=== PATIENT | female | born 1955 | race Caucasian/White ===

== ENCOUNTER → 2017-02-03 | Outpatient (CLI) | payer BC ==
[2017-02-03 12:24] LABS: BASO % 0.4 %; BASO ABS # 0.02 K/uL (0-0.2); COMPLETE YES; EOS % 1.8 %; IG% 0.2 %; LYMPH % 33.5 %; LYMPH ABS # 1.72 K/uL (1.2-3.4); MEAN CELL VOLUME 89.9 fL (80-100); MEAN CORPUSCULAR HEMOGLOBIN 31.6 pg (25-34); MEAN CORPUSCULAR HGB CONC 35.1 g/dl (32-36); MEAN PLATELET VOLUME 9.9 fL (7.4-10.4); MONO % 8.8 %; NEUT % 55.3 %; PLATELET COUNT 270 K/uL (130-400); RED BLOOD COUNT 4.34 M/uL (4.2-5.4); WHITE BLOOD COUNT 5.13 K/uL (4.8-10.8)
[2017-02-03 12:28] LABS: URINE APPEARANCE CLEAR (CLEAR); URINE BILIRUBIN NEG (NEG); URINE COLOR YELLOW; URINE EPITHELIAL CELL AUTO 20-30 /lpf (0-5); URINE NITRITE NEG (NEG); URINE SPECIFIC GRAVITY 1.003 (1.000-1.030); UROBILINOGEN NEG (NEG)
[2017-02-03 12:37] LABS: ALT/SGPT 28 U/L (12-78); AST/SGOT 15 U/L (15-37); BLOOD UREA NITROGEN 11 mg/dl (7-18); BUN/CREATININE RATIO 15.7 (10-20); CALCIUM 8.9 mg/dl (8.5-10.1); CARBON DIOXIDE 29 mmol/L (21-32); CHLORIDE 106 mmol/L (98-107); CHOLESTEROL 226 mg/dl (0-200); CREATININE 0.72 mg/dl (0.60-1.20); GLUCOSE 95 mg/dl (70-99); MANUAL MICROSCOPIC REQUIRED? NO; POTASSIUM 3.7 mmol/L (3.5-5.1); REVIEW REQ? NO; SODIUM 142 mmol/L (136-145)
[2017-02-03 12:40] LABS: ALB/GLOB RATIO 1.1 (0.9-2); ALKALINE PHOSPHATASE 98 U/L (45-117); CHOLESTEROL/HDL RATIO 3.9; HDL CHOLESTEROL 58 mg/dl; LDL CHOLESTEROL CALCULATED 136 mg/dl; TRIGLYCERIDES 160 mg/dl (0-150); VERY LOW DENSITY LIPOPROT CALC 32 mg/dl
== END | disposition home or self-care (01) ==
LOC: C.LABBFT 08:24
PROVIDERS: ATTEND Nurse Practitioner
DX: E78.00 Pure hypercholesterolemia, unspecified (principal); R03.0 Elevated blood-pressure reading, without diagnosis of hypertension

== ENCOUNTER → 2017-03-06 | Outpatient (CLI) | payer BC ==
--- NOTE | 2017-03-09 12:46 | MAMMOGRAPHY REPORT ---
BILATERAL DIGITAL SCREENING MAMMOGRAM WITH CAD: 03/06/2017 CLINICAL HISTORY: Routine screening. Patient has no complaints. TECHNIQUE: Current study was also evaluated with a Computer Aided Detection (CAD) system. Bilatera l CC and MLO views were obtained. COMPARISON: Comparison is made to exams dated: 02/29/2016 mammogram, 02/23/2014 mammogram, 02/28/2015 ma mmogram, 02/16/2013 mammogram, 02/11/2012 mammogram, and 02/06/2011 mammogram - [facility] enter. BREAST COMPOSITION: The tissue of both breasts is heterogeneously dense, which may obscure small ma sses. FINDINGS: There is a nodular 8 mm asymmetry seen within the left inferior breast middle depth on th e MLO view only, for which spot compression tomosynthesis views and possible breast ultrasound are r ecommended for further evaluation. This may represent a cyst. The remainder of both breasts are stable compared to prior exams, without suspicious masses, calcifi cations, or areas of architectural distortion noted. Round circumscribed benign-appearing 8 mm mass seen within the left upper inner quadrant is stable. Bilateral benign-appearing calcifications are not significantly changed. IMPRESSION: ACR BI-RADS CATEGORY 0: INCOMPLETE EVALUATION: NEED ADDITIONAL IMAGING EVALUATION Left breast asymmetry, for which additional imaging evaluation is recommended. The patient will be called to schedule an appointment. Approximately 10% of breast cancers are not detected with mammography. A negative mammographic repor t should not delay biopsy if a clinically suggestive mass is present. Kelsi Littlejohn M.D. ah/:03/08/2017 12:05:21 Business Management Consultant: Marialuisa BARR([place])(M), [facility] letter sent: Addl Imaging 0 BI-RADS Code: ACR BI-RADS Category 0: Incomplete Evaluation: Need Additional Imaging Evaluation
== END | disposition home or self-care (01) ==
LOC: C.MAMM 07:30
PROVIDERS: ATTEND Obstetrics & Gynecology
DX: Z12.31 Encounter for screening mammogram for malignant neoplasm of breast (principal); N64.89 Other specified disorders of breast

== ENCOUNTER → 2017-03-09 | Outpatient (CLI) | payer BC | END | disposition home or self-care (01) | LOC: C.PAPS 16:27 | PROVIDERS: ATTEND Obstetrics & Gynecology | DX: Z01.419 Encounter for gynecological examination (general) (routine) without abnormal findings (principal); Z78.0 Asymptomatic menopausal state ==

== ENCOUNTER → 2017-03-17 | Outpatient (CLI) | payer BC ==
--- NOTE | 2017-03-17 16:30 | MAMMOGRAPHY REPORT ---
UNILATERAL LEFT DIGITAL DIAGNOSTIC MAMMOGRAM TOMOSYNTHESIS AND TARGETED LEFT ULTRASOUND: 03/17/2017 CLINICAL HISTORY: 61-year-old woman called back from screening mammography for nodular asymmetry in the inferior anterior left breast. TECHNIQUE: Spot compression left CC and MLO 2-D digital and tomosynthesis images were obtained. COMPARISON: Comparison is made to exams dated: 03/06/2017 mammogram, 02/29/2016 mammogram, 02/28/2015 chang mogram, 02/23/2014 mammogram, 02/16/2013 mammogram, and 02/11/2012 mammogram - [facility] nter. BREAST COMPOSITION: The tissue of the left breast is heterogeneously dense, which may obscure small masses. FINDINGS: Spot compression views of the left breast demonstrate a lobulated and circumscribed 5.7 x 8.7 x 6.7 mm mass in the lower outer anterior breast. No associated microcalcification or aix architect ural distortion. A 9 mm circumscribed mass in the medial, middle one third of the left breast is de creasing in size compared to prior available mammograms. There are a few benign-appearing coarse ca lcifications. Targeted ultrasound was performed in the lower outer quadrant of the left breast. In the 5:00 axis, 1 cm from the nipple, there is a lobulated anechoic 6.4 x 4.8 x 7.0 mm cyst, reniform in shape, tho ught to correlate with the lobulated and circumscribed mammographic mass. Incidental note is made o f benign duct ectasia in the 5:00 and retroareolar left breast. IMPRESSION: ACR BI-RADS CATEGORY 2: BENIGN, TARGETED ULTRASOUND ACR BI-RADS CATEGORY 2: BENIGN The 7 mm asymmetry in the inferior anterior left breast correlates with a benign anechoic simple cys t on ultrasound. There is no mammographic or targeted sonographic evidence of malignancy. Return to annual mammogram screening schedule is recommended. The patient has been verbally notified of the results. Approximately 10% of breast cancers are not detected with mammography. A negative mammographic repor t should not delay biopsy if a clinically suggestive mass is present. Elidia Cook M.D. ay/:03/17/2017 14:33:27 Trolley Wire Installer: Italia BARR([place])(Carie), [facility] letter sent: Normal 1/2 BI-RADS Code: ACR BI-RADS Category 2: Benign Ultrasound BI-RADS: ACR BI-RADS Category 2: Benign
== END | disposition home or self-care (01) ==
LOC: C.MAMM 08:49
PROVIDERS: ATTEND Obstetrics & Gynecology
DX: N64.9 Disorder of breast, unspecified (principal)

== ENCOUNTER → 2018-02-16 | Outpatient (CLI) | payer BC ==
[2018-02-16 13:13] LABS: ALT/SGPT 24 U/L (12-78); BLOOD UREA NITROGEN 11 mg/dl (7-18); CALCIUM 9.2 mg/dl (8.5-10.1); CARBON DIOXIDE 27 mmol/L (21-32); CHOLESTEROL 179 mg/dl (0-200); CREATININE 0.73 mg/dl (0.60-1.20); GLUCOSE 85 mg/dl (70-99); POTASSIUM 3.6 mmol/L (3.5-5.1); SODIUM 138 mmol/L (136-145)
[2018-02-16 13:19] LABS: ALKALINE PHOSPHATASE 97 U/L (45-117); AST/SGOT 15 U/L (15-37); LDL CHOLESTEROL CALCULATED 99 mg/dl; TOTAL PROTEIN 7.4 gm/dl (6.4-8.2)
== END | disposition home or self-care (01) ==
LOC: C.LABBFT 07:43
PROVIDERS: ATTEND Nurse Practitioner
DX: E78.00 Pure hypercholesterolemia, unspecified (principal)

== ENCOUNTER → 2018-03-09 | Outpatient (CLI) | payer BC ==
--- NOTE | 2018-03-11 07:55 | MAMMOGRAPHY REPORT ---
BILATERAL DIGITAL SCREENING MAMMOGRAM TOMOSYNTHESIS WITH CAD: 03/09/2018 CLINICAL HISTORY: Routine screening. Patient has no complaints. TECHNIQUE: Breast tomosynthesis in addition to standard 2D mammography was performed. Current study was also evaluated with a Computer Aided Detection (CAD) system. COMPARISON: Comparison is made to exams dated: 03/17/2017 ultrasound, 03/17/2017 mammogram, 03/06/2017 m ammogram, 02/29/2016 mammogram, 02/28/2015 mammogram, and 02/23/2014 mammogram - [facility] ter. BREAST COMPOSITION: The tissue of both breasts is heterogeneously dense, which may obscure small mas ses. FINDINGS: There are diffuse bilateral punctate, round and rim calcifications in the breasts. Mild va scular calcification as well. Fluctuating nodularity in the left breast. No suspicious spiculated o r irregular mass, architectural distortion or cluster of microcalcifications is seen. IMPRESSION: ACR BI-RADS CATEGORY 1: NEGATIVE There is no mammographic evidence of malignancy. A 1 year screening mammogram is recommended. The pa tient will receive written notification of the results. Approximately 10% of breast cancers are not detected with mammography. A negative mammographic report should not delay biopsy if a clinically suggestive mass is present. Elidia Cook M.D. ay/:03/09/2018 15:33:08 Stack Yield Engineer: Italia BARR([place])(Carie), [facility] letter sent: Normal 1/2 BI-RADS Code: ACR BI-RADS Category 1: Negative
== END | disposition home or self-care (01) ==
LOC: C.MAMM 09:12
PROVIDERS: ATTEND Obstetrics & Gynecology
DX: Z12.31 Encounter for screening mammogram for malignant neoplasm of breast (principal)

== ENCOUNTER 2020-03-18 09:46 | Inpatient (IN) ==
[2020-03-18 10:21] LABS: Basophils # (auto) 0.02 K/uL (0-0.2); Basophils % (auto) 0.3 %; Eosinophils # (auto) 0.12 K/uL (0-0.5); Eosinophils % (auto) 1.8 %; Hematocrit (blood only) 43.1 % (37-47); Hemoglobin 14.8 g/dL (12.0-16.0); Immature Granulocytes # (auto) 0.01 K/uL (0.00-0.02); Immature Granulocytes % (auto) 0.1 %; Lymphocytes # (auto) 1.69 K/uL (1.2-3.4); Lymphocytes % (auto) 25.2 %; Mean Corpuscular Hemoglobin 31.2 pg (25-34); Mean Corpuscular Hgb Conc 34.3 g/dL (32-36); Mean Corpuscular Volume 90.9 fL (80-100); Mean Platelet Volume 9.4 fL (7.4-10.4); Monocytes # (auto) 0.56 K/uL (0.11-0.59); Monocytes % (auto) 8.3 %; Neutrophils # (auto) 4.31 K/uL (1.4-6.5); Neutrophils % (auto) 64.3 %; Platelet Count 246 K/uL (130-400); RDW Coefficient of Variation 12.6 % (11.5-14.5); RDW Standard Deviation 42.1 fL (36.4-46.3); Red Blood Count 4.74 M/uL (4.2-5.4); White Blood Count 6.71 K/uL (4.8-10.8)
[2020-03-18 10:42] LABS: BUN Creatinine Ratio 10.3 (10-20); Calcium 9.5 mg/dl (8.5-10.1); Creatinine Clr Calc Pharmacy 61.8 ml/min; Est GFR (African American) 87.6; Est GFR (Non-African American) 75.6; Potassium 3.9 mmol/L (3.5-5.1)
[2020-03-18 10:45] LABS: Albumin Globulin Ratio 1.2 (0.9-2); Bilirubin,Total 0.5 mg/dl (0.2-1); Globulin 3.4 gm/dl (2.5-4.0); Total Protein 7.4 gm/dl (6.4-8.2)
--- NOTE | 2020-03-18 10:56 | CT Scan Report ---
CT head/brain wo con CLINICAL HISTORY: 64 years-old Female with Headache. Acute headache TECHNIQUE: Multiple axial CT images of the head were obtained without contrast. A dose lowering tech nique was utilized adhering to the principles of ALARA. CT DOSE: 537.48 mGy.cm COMPARISON: None. FINDINGS: No acute intracranial hemorrhage, midline shift, intracranial mass, hydrocephalus, or abnormal extra- axial collection. Mild patchy white matter hypodensities are nonspecific reflect chronic microvascula r ischemic disease. Cerebral vascular calcifications are noted. Equivocal blurring of the hernandez-white interface at the level of the superior frontal lobes. The calvarium is intact. The paranasal sinuses, mastoid air cells, and middle ear cavities are clear . IMPRESSION: 1. No acute intracranial hemorrhage, midline shift or large territorial infarct. 2. Patchy white matter hypodensities are nonspecific and statistically favor chronic microvascular is chemic disease. This includes equivocal blurring of the hernandez-white interface in the bilateral frontal lobes which likely is also secondary to the aforementioned probable chronic microvascular ischemic c hanges. Areas of acute infarct are considered less likely. ACT 112: Negative or not required by law. The above report was generated using voice recognition software. It may contain grammatical, syntax o r spelling errors. Electronically signed by: Phill Caruso M.D. 03/18/2020 10:55 AM
[2020-03-18] MEDS ORDERED: LORazepam 1 MG TAB SL STA (11:34)
[2020-03-18] MEDS ORDERED: GADOBUTROL 30ML VIAL IV PRN (12:05)
--- NOTE | 2020-03-18 12:31 | Magnetic Resonance Report ---
MR brain wo/w con HISTORY: 64 years-old Female previous aphasia, now resolved acute strokelike symptoms COMPARISON: Head CT of same day TECHNIQUE: Multiplanar multisequence MRI of the brain was obtained both with and without the use of 6 .5 mL Gadavist FINDINGS: Focal area of restricted diffusion involves the periventricular and subcortical distribution of the p osterior left frontal/temporal measuring 1.0 x 1.6 cm with decreased signal on ADC map and slightly i ncreased T2/flair signal. There is no midline shift, abnormal extra-axial collection, hydrocephalus o r intracranial mass. Moderate scattered T2/FLAIR hyperintensities about the white matter suggest patient registration manager rita microvascular ischemic disease. No abnormal intra-axial or extra-axial enhancement. Midline struc tures including the corpus callosum, brainstem, optic chiasm, pituitary and pineal glands appear unre markable on the sagittal T1 series. Low-lying cerebellar tonsils. Degenerative changes are noted abou t the imaged cervical spine. Major vascular flow voids are patent. Mastoid air cells are generally clear. Minimal polypoid mucosal thickening of the left maxillary sinus. The skull, orbits and soft tissues are unremarkable. IMPRESSION: 1. Acute infarct of the periventricular and subcortical left frontal/temporal lobe measures up to 1.0 x 1.6 cm. 2. No acute intracranial hemorrhage or midline shift. 3. Moderate T2/FLAIR hyperintensities throughout the white matter suggest chronic microvascular ische maria del rosario disease. 4. No abnormal enhancement ACT 112: Negative or not required by law. The above report was generated using voice recognition software. It may contain grammatical, syntax o r spelling errors. Electronically signed by: Phill Caruso M.D. 03/18/2020 12:30 PM
--- NOTE | 2020-03-18 13:09 | History & Physical Report ---
Date of Service March 18, 2020 Assessment & Plan (1) CVA (cerebral vascular accident): most likely intracranial atherosclerosis from HTN/hyperlipidemia -asa, statin, BP management -check carotids/MCA to look for evidence of large vessel thrombotic disease -echo/cardiac monitoring to r/o cardioembolic source neuro consult PT/OT eval and treat hopefully home w secondary risk reduction (2) Hypertension: BP far higher than before --- notes typically 140 systolic when she's checked, although admits it's been quite a while since she has checked. allow for autoregulation, but initiate lisinopril at low dose (will start 5mg today and gently titrate from there) (3) Hyperlipidemia: check lipids in AM start atorvastatin (she hadn't been on her prior simvastatin for ?maybe a year due to running out and waiting to essentially re-establish, therefore will start w statin that not only should get lipids to goal but act for plaque stabilization as well) (4) DVT prophylaxis: lovenox, ambulation (5) Discharge planning issues: admit to tele anticipate home after w/u and management/stabilization d/w pt - full code History of Present Illness Chief Complaint: difficulty speaking Primary Care Provider: Yenny Corona MD very pleasant 64f woke up this AM and had a headache - not that bad no change in vision not intense no photophobia phonophobia or aura - notes that she gets migraines from time to time and this was different. then suddenly noted difficulty speaking - had a hard time deciding if it was difficulty word finding or more of a dysarthria but favor dysarthria. no facial numbness. did not notice facial droop. no new/different hand paresthesia or weakness - she notes that she has disc issues that cause some of these sx frequently - but both sides not unilateral, and was no different than her baseline. no leg numbness/weakness. dysarthria resolved, presented to ER - found to have CVA. headache basically gone now and she more or less feels normal. no cp no cough no f/c/s, no myalgias, no exposure to anyone sick recently, no known covid19 contacts. only significant family hx is mom did have ME reasonably young but then lived to ~90 Allergies Allergy/AdvReac Type Severity Reaction Status Date / Time amoxicillin Allergy Rash Verified 03/18/20 10:50 Home Medications Home Medications Medication Instructions Recorded Confirmed Type No Known Home Medications 03/18/20 03/18/20 History Past Med/Surg History Medical History Hyperlipidemia Hypertension Surgical History H/O breast biopsy (~2002) percutaneous needle core. 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 Other Information That Helps Us Care for You: No Feels Safe at Home: Yes Safety Concerns: Feels Safe At This Time Smoking Status: Former smoker Hx Alcohol Use: No Hx Substance Use: No Review of Systems Review of Systems: All systems reviewed & are unremarkable except as noted in HPI & below Physical Exam Physical Exam: gen aaox3 pleasant nad heent nc at mmm, neck full ROM cardio reg no r/m/g lungs cta b/l no rrw good effort no accessory muscles no respiratory distress abd soft nd nt no masses no guarding no rebound ext no c/c/e no calf tenderness neuro cn 2-12 grossly intact, gross motor and sensory intact. no focal deficts to exam msk strength 5/5 and equal, no muscle atrophy. no gross lesions skin - no rashes no pallor or icterus mental good recent and remote recall normal mood and affect good judgement and insight ---essentially exam was entirely normal Results & Data Results & Data ([facility]) Vital Signs (Past 12 Hours) Vital Signs Temp Pulse Pulse Resp BP BP Pulse Ox 03/18/20 12:30 90 18 174/93 H 97 03/18/20 11:30 86 22 186/88 H 97 03/18/20 11:00 78 16 186/102 H 98 03/18/20 10:13 89 23 157/91 H 97 03/18/20 09:53 98.6 F 109 H 20 180/125 H 95 PG Care Time/CCT Total # of Minutes Spent Total Time Spent with Patient: Total time spent is greater than 50% in coordination of care (as documented) at patient's floor/unit and/or counseling patient: Coding Level of Care Code 33547 Initial Inpt Care Lvl 3 Diagnoses CVA (cerebral vascular accident) I63.9 Hypertension I10 Hyperlipidemia E78.5 DVT prophylaxis Z29.9 Discharge planning issues Z02.9
--- NOTE | 2020-03-18 14:19 | Emergency Department Note ---
History of Present Illness General Chief complaint: Headache Stated complaint: WOKE UP WITH HEADACHE AND SPEECH IS SLURRED Time Seen by Provider: 03/18/20 09:54 Source: patient Mode of arrival: ambulatory Limitations: no limitations History of Present Illness Maximum Pain Intensity: 5 This 64-year-old white female presents today for evaluation of a headache that she had this morning. Patient states she woke from sleep around 7:45 this morning. She had a frontal headache and had slurred speech. She also states she had difficulty getting her thoughts together. She decided to go back to bed. When she woke the second time, headache had improved and her speech had improved. Her was still concerned and brought her to the ED. She denies any history of similar episode. She does have a history of migraine headaches but states this headache was different. She denies any trauma. She states she does have known elevated cholesterol and is supposed to be taking a statin. She has not taken it for about a month. She denies any known hypertension. She has an appointment to see a new PCP in March. Patient has been ambulatory this morning and currently denies any symptoms. She denies any weakness. No nausea or vomiting. No chest pain or shortness of breath. No other complaints at this time. Home Medications Home Medications Medication Instructions Recorded Confirmed Type No Known Home Medications 03/18/20 03/18/20 History Allergies Allergy/AdvReac Type Severity Reaction Status Date / Time amoxicillin Allergy Rash Verified 03/18/20 10:50 Past Med/Surg History Medical History Hyperlipidemia Hypertension Surgical History H/O breast biopsy (~2002) percutaneous needle core. 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 Other Information That Helps Us Care for You: No Feels Safe at Home: Yes Safety Concerns: Feels Safe At This Time Smoking Status: Former smoker Hx Alcohol Use: No Hx Substance Use: No Review of Systems A total of 10 systems reviewed and were otherwise negative Physical Exam Vital Signs Vital Signs - 24 hr 03/18/20 09:53 03/18/20 10:13 03/18/20 11:00 Temperature 37.0 C Temperature Source Oral Pulse Rate 109 H 89 78 Pulse Rate [Apical] Pulse Rate from SpO2 Sensor 89 79 Pulse Rhythm [Apical] Pulse Strength [Apical] Respiratory Rate 20 23 16 Respiratory Effort / Characteristics Respiratory Depth Respiratory Pattern Blood Pressure 180/125 H 157/91 H 186/102 H Blood Pressure [Left Arm] Blood Pressure Mean 143 113 134 Blood Pressure Mean [Left Arm] Pulse Oximetry 95 97 98 Oxygen Delivery Method Room Air Sepsis Recent Fever Within 48 Hours No Sepsis New/Unexplained Change in Mental Status No Sepsis Action Taken by Nursing No Action Required 03/18/20 11:30 03/18/20 12:30 Temperature Temperature Source Pulse Rate 86 Pulse Rate [Apical] 90 Pulse Rate from SpO2 Sensor 87 Pulse Rhythm [Apical] Regular Pulse Strength [Apical] Normal Respiratory Rate 22 18 Respiratory Effort / Characteristics Non-Labored Spontaneous Respiratory Depth Normal Respiratory Pattern Regular Blood Pressure 186/88 H Blood Pressure [Left Arm] 174/93 H Blood Pressure Mean 122 Blood Pressure Mean [Left Arm] 120 Pulse Oximetry 97 97 Oxygen Delivery Method Room Air Sepsis Recent Fever Within 48 Hours Sepsis New/Unexplained Change in Mental Status Sepsis Action Taken by Nursing General: Well-developed, well-nourished, middle-aged white female, in no acute distress. Sitting on a bed. Alert and oriented. Skin: Warm and dry with good turgor. No rashes or lesions. No ecchymosis or erythema. The patient is not diaphoretic. No abrasions. No aphasia. HEENT: Normocephalic atraumatic. Eyes PERRLA, EOMI. No conjunctiva or scleral injection. Ears TMs intact bilaterally with good light reflexes. No erythema or bulging. No hemotympanum. Canals are patent. Nares patent bilaterally without turbinate enlargement. No significant drainage. No epistaxis. Oropharynx without erythema or exudate. Uvula midline, oral mucosa moist. No lesions present. Normal speech today. Heart: Heart RRR. No MGR. Peripheral pulses are 2+. Lungs: Lungs are clear to auscultation. No crackles rhonchi or wheezing. Good air movement. The patient is able to take a deep breath. Abdomen: Abdomen was inspected, auscultated, and palpated. Bowel sounds present x 4. Soft, nontender to palpation. No hepato-splenomegaly. No masses noted. No rebound. Musculoskeletal: Gross motor function of the upper and lower extremities is intact and unremarkable. Symmetric straight leg raise. 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 Neurologic: Gross sensation is intact across the upper and lower extremities by soft touch. Cranial nerves II through XII are intact. DTRs are 2+ bilaterally at the knees. Normal stroke exam with a score of 0. Normal [id number]-[id number] and rapid alternating extremity movements. Normal mtuv-fe-pahf bilaterally. Course Administered Medications Aspirin (Ecotrin Ectab) 81 mg PO [facility] Stop: 04/17/20 13:29 Last Admin: 03/18/20 16:35 Dose: 81 mg Documented by: [id number] Atorvastatin Calcium (Lipitor) 40 mg PO [facility] Stop: 04/17/20 14:39 Last Admin: 03/18/20 16:34 Dose: 40 mg Documented by: [id number] Gadobutrol (Gadavist 30ml) 6.5 ml IV ONCE PRN PRN Reason: Interaction Checking Stop: 03/22/20 12:04 Last Admin: 03/18/20 12:06 Dose: 6.5 ml Documented by: [id number] Discontinued Medications Lorazepam (Ativan) 1 mg SL NOW STA Stop: 03/18/20 11:35 Last Admin: 03/18/20 11:37 Dose: 1 mg Documented by: [id number] Medical Decision Making Differential Diagnosis Atypical migraine, cerebral infarct, somnolence, medication reaction Medical Records Attestation: I reviewed the patient's medical records. Home Medications Current Medication List: was personally reviewed by me Laboratory Data Attestation: I reviewed the patient's lab results. CBC, PT/INR, and chemistry panel were obtained today. They are all unremarkable . Result diagrams: 03/18/20 10:10 03/18/20 10:10 Lab Results 03/18/20 03/18/20 03/18/20 Range/Units 10:10 10:10 10:10 WBC 6.71 (4.8-10.8) K/uL RBC 4.74 (4.2-5.4) M/uL Hgb 14.8 (12.0-16.0) g/dL Hct 43.1 (37-47) % MCV 90.9 (80-100) fL MCH 31.2 (25-34) pg MCHC 34.3 (32-36) g/dL RDW Std Deviation 42.1 (36.4-46.3) fL RDW Coeff of Hema 12.6 (11.5-14.5) % Plt Count 246 (130-400) K/uL MPV 9.4 (7.4-10.4) fL Immature Gran % (Auto) 0.1 % Neut % (Auto) 64.3 % Lymph % (Auto) 25.2 % Mchenry % (Auto) 8.3 % Eos % (Auto) 1.8 % Baso % (Auto) 0.3 % Immature Gran # (Auto) 0.01 (0.00-0.02) K/uL Neut # (Auto) 4.31 (1.4-6.5) K/uL Lymph # (Auto) 1.69 (1.2-3.4) K/uL Mchenry # (Auto) 0.56 (0.11-0.59) K/uL Eos # (Auto) 0.12 (0-0.5) K/uL Baso # (Auto) 0.02 (0-0.2) K/uL PT 11.0 (9.0-12.0) Seconds INR 1.0 (0.9-1.1) Sodium 139 (136-145) mmol/L Potassium 3.9 (3.5-5.1) mmol/L Chloride 105 (98-107) mmol/L Carbon Dioxide 25 (21-32) mmol/L Anion Gap 9.0 (3-11) BUN 9 (7-18) mg/dl Creatinine 0.82 (0.6-1.2) mg/dl Est Cr Clr Drug Dosing 61.8 ml/min Est GFR ( Amer) 87.6 Est GFR (Non-Af Amer) 75.6 BUN/Creatinine Ratio 10.3 (10-20) Glucose 120 H (70-99) mg/dl Calcium 9.5 (8.5-10.1) mg/dl Total Bilirubin 0.5 (0.2-1) mg/dl AST 15 (15-37) U/L ALT 26 (12-78) U/L Alkaline Phosphatase 107 (45-117) U/L Total Protein 7.4 (6.4-8.2) gm/dl Albumin 4.0 (3.4-5.0) gm/dl Globulin 3.4 (2.5-4.0) gm/dl Albumin/Globulin Ratio 1.2 (0.9-2) Imaging Data Radiologist's Impression: CT scan imaging of the head was obtained today to rule out intracranial bleed. This was reviewed by me and read by radiology. She has no acute intracranial hemorrhage, midline shift or large territorial infarct. Patchy white matter hypodensities are nonspecific and statistically favor chronic microvascular ischemic disease. This includes equivocal blurring of the hernandez-white interface in the bilateral frontal lobes which likely is also second chance to the aforementioned probable chronic microvascular ischemic changes. Areas of acute infarct are considered less likely. MRI imaging of the brain with and without contrast was also obtained. Acute infarct of the periventricular and subcortical left frontal/temporal lobe measures up to 1.0 x 1.6 cm. No acute intracranial hemorrhage or midline shift. Moderate T2/FLAIR hyperintensities throughout the white matter suggest chronic microvascular ischemic disease. No abnormal enhancement Prescription Drug Monitoring [place] Drug [place] reviewed and no issues identified Blood Pressure Blood Pressure Findings: Elevated blood pressure Blood Pressure Disposition: further management by hospitalist DIPIKA Arita Patient was evaluated in room B 10. IV was established. Labs were obtained. CT scan imaging of her head was obtained. This was abnormal but was not conclusive for any infarct. MRI imaging of the brain with and without contrast was then obtained. This was positive for acute infarct. Importance of admission and monitoring was discussed with the patient. She is in agreement. [facility] hospitalist service was contacted and did come to the ED to evaluate the patient for admission. Please see that dictation for final management and outcome. She remained stable while in the ED. I did speak with Dr. Grier from [facility] neurology/tele-stroke, who appears to know the family fairly well. He recommended restarting the statin and aspirin. He would be happy to see her in follow-up at his clinic, if she desires. Eduar brito number [phone]. Patient was not a candidate for TPA due to her resolution of symptoms as well as her last known well time and her suspected initial onset at waking. Patient was seen in conjunction with Dr. Monson, who also evaluated the patient and concurred with today's diagnosis and treatment plan. Impression & Plan CVA (cerebral vascular accident) [facility] She remained stable while in the ED. Discharge Plan Visit Data *Final* Discharge Date/Time: 03/18/20 14:03 Chief Complaint: Headache Stated Complaint: WOKE UP WITH HEADACHE AND SPEECH IS SLURRED ED Provider: Alina Monson ED Midlevel Provider: Yimi Edwards Discharge Problem: CVA (cerebral vascular accident) Patient Disposition: Admitted As Inpatient Discharge Instructions Interventions: ED Discharge Assessment Last Done: 03/18/20 14:03 Discharge Problem: CVA (cerebral vascular accident) Qualifiers: Laterality of affected vessel: unspecified
[2020-03-18] MEDS ORDERED: ACETAMINOPHEN 325 MG TAB PO PRN (14:40)
[2020-03-18] MEDS ORDERED: MAGNESIUM HYDROXIDE SUSP 30 ML UDC PO PRN (14:40)
[2020-03-18] MEDS ORDERED: ONDANSETRON INJ 2 MG/ML 2 ML VIAL IV PRN (14:40)
[2020-03-18] MEDS ORDERED: PHARMACIST DISCHARGE MED REC CONSULT PRN (14:40)
[2020-03-18] MEDS ORDERED: ALUMINUM/MAGNESIUM SUSP 30 ML UDC PO PRN (14:40)
[2020-03-18] MEDS: ATORVASTATIN 40 MG TAB PO SCH (16:34)
[2020-03-18] MEDS: ASPIRIN 81 MG ECTAB PO SCH (16:35)
[2020-03-18] MEDS ORDERED: OPTIRAY 320 125ml IV PRN (17:01)
--- NOTE | 2020-03-18 17:28 | Electrocardiogram Report ---
Test Reason : Blood Pressure : / mmHG Vent. Rate : 089 BPM Atrial Rate : 089 BPM P-R Int : 142 ms QRS Dur : 078 ms QT Int : 354 ms P-R-T Axes : 067 026 032 degrees QTc Int : 430 ms Normal sinus rhythm Normal ECG No previous ECGs available Confirmed by Betito Tierney ([id number]) on 03/18/2020 5:28:37 PM Referred By: Confirmed By:Betito Tierney
--- NOTE | 2020-03-18 17:31 | CT Scan Report ---
CT angio neck with con, CT angio head w con CLINICAL HISTORY: 64 years-old Female with stroke. Acute strokelike symptoms COMPARISON STUDY: CT head and MRI brain of same day TECHNIQUE: Following the IV administration of 119 mL of Optiray 320, CT angiogram of the head and nec k was performed from the aortic arch to the skull apex. Images are reviewed in the axial, sagittal, a nd coronal planes. 3-D MIPS images are created and assessed. IV contrast was administered without com plication. All measurements were calculated based on NASCET criteria. A dose lowering technique was utilized adhering to the principles of ALARA. CT DOSE: 442.18 mGy.cm FINDINGS: Imaged opacified pulmonary arterial tree is unremarkable. Unremarkable appearance of the three-vessel aortic arch. Patency of the imaged bilateral subclavian arteries. Mild atheromatous plaque of the mi d and distal common carotid arteries without high-grade stenosis. Bilateral internal carotid arteries are also widely patent. Calcified plaque of the cavernous and supraclinoid segments without high-gra de stenosis. 2.6 mm saccular outpouching involves the caudal and lateral aspect of the carotid termin us on the right, image 77 series 3. Mild multifocal luminal narrowing of the middle cerebral arteries likely secondary to atheromatous plaque. The and anterior cerebral arteries are patent. The vertebral arteries are codominant and are patent. There is suggestion of a fenestrated basilar ar sierra. Basilar artery is patent. 2 mm focal area of high-grade stenosis involves the P1 segment right posterior cerebral artery on image 87 series 3. Mild multifocal luminal narrowing of the bilateral po sterior cerebral arteries. No dissection or proximal branch occlusion. Cerebral venous sinuses appear patent. No abnormal intra-axial enhancement. Patchy white matter hypodensities compatible with chron ic microvascular ischemic disease. Lung apices are clear without pneumothorax. Unremarkable soft tissues. Multilevel degenerative change s of the spine. IMPRESSION: 1. Short segment high-grade stenosis of the P1 segment right posterior cerebral artery. 2. 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 3. Atherosclerotic vascular disease with multifocal mostly mild luminal narrowing. 4. Fenestrated basilar artery. ACT 112: Negative or not required by law. The above report was generated using voice recognition software. It may contain grammatical, syntax o r spelling errors. Electronically signed by: Phill Caruso M.D. 03/18/2020 5:30 PM
[2020-03-18] MEDS ORDERED: ENOXAPARIN INJ 40 MG/0.4 ML SYR SQ SCH (21:00)
[2020-03-18] MEDS ORDERED: lisinopriL 5 MG TAB PO SCH (21:00)
[2020-03-19 06:52] LABS: BUN Creatinine Ratio 14.8 (10-20); Calcium 8.9 mg/dl (8.5-10.1); Creatinine Clr Calc Pharmacy 69.6 ml/min; Est GFR (African American) 102.6; Est GFR (Non-African American) 88.5; Potassium 3.8 mmol/L (3.5-5.1)
[2020-03-19 07:08] LABS: Estimated Average Glucose 111 mg/dl; Hemoglobin A1C 5.5 % (4.5-5.6)
[2020-03-19] MEDS: ATORVASTATIN 40 MG TAB PO SCH (08:00)
[2020-03-19] MEDS: ASPIRIN 81 MG ECTAB PO SCH (08:00)
--- NOTE | 2020-03-19 09:19 | XCELERA ---
[id number] \\[email or web address]\[id number]
[2020-03-19] MEDS ORDERED: CLOPIDOGREL BISULFATE 75 MG TAB PO SCH (14:15)
--- NOTE | 2020-03-19 14:25 | Neurology Consultation ---
Date of Consultation March 19, 2020 Assessment & Plan (1) Stroke: Leticia Montano is a 64 yo woman with no significant PMH who p/t [facility] on 03/18/20 with acute onset of headache followed by word finding difficulty, found to have a small L subacute infarct in the external capsule/centrum semiovale. Symptom localization: L MCA territory Stroke mechanism: cardioembolic vs vessel to vessel embolus from intracranial atherosclerosis Stroke WorkUp: - CT head: no hemorrhage or hypodensity, +SVID - CTA head/neck: high-grade stenosis of the right P2, small 2 mm aneurysm at the terminus of the right ICA, and diffuse intracranial atherosclerosis, no other LVO/high grade stenosis/aneurysms noted - MRI brain: mild to moderate small vessel disease, subacute infarct in the left external capsule and centrum semiovale and no tumor or other concerning lesions - TTE: EF 60-65%, grade II diastolic dysfunction - Telemetry: NSR - A1c: 5.5 - FLP: 155 Stroke Management: - Acute treatment: ASA/plavix - Continuous cardiac monitoring, 30 day event monitor on discharge - Vitals, Neurochecks, NIHSS per unit routine - BP parameters: SBP CAP 180, ok to start anti-hypertensives - Consult speech, PT, OT for supportive management - Will primary substance abuse counselor concerning stroke education, smoking cessation, healthy diet, physical activity, weight loss - Follow up with PCP for assistance with outpatient goals (BP <135/85, LDL <70, A1c <7) - Follow up in neurology clinic in 4-6 weeks via telehealth Secondary Stroke Prevention: - Antiplatelet: ASA 81mg po daily/plavix 75mg daily for 30 days, then just aspirin 81mg daily - Anticoagulation: Not indicated at this time - Statin: Atorvastatin 80mg daily HTN: - BP parameters, as above FEN/GI: - Diet: Cardiac HH diet and PO meds given absence of bulbar signs or symptoms - Monitor lytes and replete PRN Glucose Control: - Sliding scale insulin and accuchecks per primary team to avoid hyperglycemia Thank you for this interesting consult. Plan of care was discussed with primary team. Please call or text with any questions. (2) Intracranial atherosclerosis: (3) Hyperlipidemia: (4) Hypertension: History of Present Illness Attending Physician: Lani Desai MD History of Present Illness eLticia Montano is a 64 yo woman with no significant PMH who p/t [facility] on 03/18/20 with acute onset of headache followed by word finding difficulty. [employer]IST ~ 930am. Reports that she woke up with a headache around 7:45 in the morning, took 2 baby Tylenol and went back to sleep until around 930 when she woke up and noted word finding difficulty. was concerned and brought her to the ED. Denied any numbness, tingling, weakness, vision changes or dizziness. In the ED, she was afebrile with BP 180/125, respiratory rate 20, heart rate 109. Labs notable for WBC 6.7, hemoglobin 14.8, platelets 246, glucose 120, INR 1.0, creatinine 0.82, otherwise unremarkable BMP. CT head showed no hemorrhage or hypodensities, did have mild small vessel disease. MRI of the brain was independently reviewed and notable for mild to moderate small vessel disease, subacute infarct in the left external capsule and centrum semiovale and no tumor or other concerning lesions. CTA of the head and neck was independently reviewed and notable for high-grade stenosis of the right P2, small 2 mm aneurysm at the terminus of the right ICA, and diffuse intracranial atherosclerosis. She is admitted for further work-up. On examination today, NIH stroke scale 0. She was started on aspirin/Plavix and atorvastatin which she has been tolerating well. She denies any current neurological symptoms or recurrence of word finding difficulty since she was admitted. Does report that she had remote history of migraine type headaches several years ago when her dad was ill but no longstanding history of migraines. She does have a history of hyperlipidemia but is not currently on any medications at home. Allergies Allergy/AdvReac Type Severity Reaction Status Date / Time amoxicillin Allergy Rash Verified 03/18/20 10:50 Home Medications Home Medications Medication Instructions Recorded Confirmed Type No Known Home Medications 03/18/20 03/18/20 History Patient History Medical History Hyperlipidemia Hypertension Surgical History H/O breast biopsy (~2002) percutaneous needle core. 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 Exam (Neuro) Physical Exam: General Exam: GEN: NAD, sitting in chair HEENT: No conjunctival injection, no rhinorrhea. CV: RRR on monitor, no significant edema. PULM: Nonlabored respirations on room air. Neuro Exam: MS: Awake and Alert. Oriented to person, place, and date. Speech fluent and appropriate without dysarthria or paraphasic errors. Language intact including naming, comprehension, repetition. Cognition and memory grossly intact. Attention intact. No neglect. CN: Visual nayak full, + blink to threat bilaterally. No extinction to double simultaneous stimuli. Unable to visualize fundi clearly on fundoscopic exam. PERRLA OU. EOMI without nystagmus. Facial sensation intact to LT. Facial muscles full and symmetric. Hearing intact to finger rub bilaterally. Uvula midline with symmetric palatal elevation. SCMs and shoulder shrug normal. Tongue midline. MOTOR: Normal bulk and tone. No pronator drift. BUE strength 5/5 at deltoids, b iceps, triceps, wrist flexors and extensors, and finger flexors bilaterally. BLE strength 5/5 at iliopsoas, hamstrings, quadriceps, tibialis anterior, and gastrocnemius bilaterally. REFLEXES: 2+ at biceps, triceps, brachioradialis, patella, and Achilles bilaterally. Flexor plantar responses bilaterally. SENSORY: Intact to LT/vibration/temperature throughout, no extinction to double simultaneous stimuli. COORDINATION: No dysmetria or ataxia on trkyky-mb-rlan bilaterally. Normal Kang bilaterally. GAIT: Deferred due to physical status. NIH STROKE SCALE 1A. Level of Consciousness (0-3) = 0 1B. LOC Questions (0-2) = 0 1C. LOC Commands (0-2) = 0 2. Best Horizontal Gaze (0-2) = 0 3. Visual Nayak (0-3) = 0 4. Facial Palsy (0-3) = 0 5. Motor Arm Right (0-4) = 0 Left (0-4) = 0 6. Motor Leg Right (0-4) = 0 Left (0-4) = 0 7. Limb Ataxia (0-2) = 0 8. Sensory (0-2) = 0 9. Best Language (0-3) = 0 10. Dysarthria (0-2) = 0 11. Extinction and Inattention (0-2) = 0 NIHSS TOTAL = 0 Results & Data ([facility]) Vital Signs (Past 12 Hours) Vital Signs Temp Pulse Pulse Pulse Resp BP Pulse Ox 03/19/20 11:34 97 03/19/20 11:12 36.5 C 76 17 136/87 99 03/19/20 10:29 36.7 C 19 82/51 L 92 03/19/20 10:28 74 03/19/20 08:03 36.7 C 77 18 147/81 H 97 03/19/20 03:50 36.5 C 68 16 127/78 99 PG Care Time/CCT Total # of Minutes Spent Total Time Spent with Patient: Total time spent is greater than 50% in coordination of care (as documented) at patient's floor/unit and/or counseling patient: Coding Level of Care Code 31815 Inpt Consult Level 5 Diagnoses Stroke I63.9 Intracranial atherosclerosis I67.2 Hyperlipidemia E78.5 Hypertension I10
[2020-03-19] MEDS ORDERED: STROKE PATIENT DISCHARGE STA (14:31)
--- NOTE | 2020-03-19 14:32 | Discharge Summary ---
Date of Service March 19, 2020 Admission HPI Per Admitting Provider very pleasant 64f woke up this AM and had a headache - not that bad no change in vision not intense no photophobia phonophobia or aura - notes that she gets migraines from time to time and this was different. then suddenly noted difficulty speaking - had a hard time deciding if it was difficulty word finding or more of a dysarthria but favor dysarthria. no facial numbness. did not notice facial droop. no new/different hand paresthesia or weakness - she notes that she has disc issues that cause some of these sx frequently - but both sides not unilateral, and was no different than her baseline. no leg numbness/weakness. dysarthria resolved, presented to ER - found to have CVA. headache basically gone now and she more or less feels normal. no cp no cough no f/c/s, no myalgias, no exposure to anyone sick recently, no known covid19 contacts. only significant family hx is mom did have AR reasonably young but then lived to ~90 Principal Diagnosis Acute ischemic CVA Discharge Exam Constitutional WD/WN, vitals as above Eyes PERRL, conjunctivae normal, anicteric sclerae EOM intact bilaterally; no anisocoria and no nystagmus ENMT external ear and nose normal, oropharynx normal Neck trachea midline, no thyromegaly Respiratory normal respiratory effort, lungs clear to auscultation Cardiovascular RRR, no murmur, no edema Chest (Breasts) Chest: normal inspection of chest Gastrointestinal (Abdomen) normal bowel sounds, soft, nontender, no hepatosplenomegaly Musculoskeletal Extremities: extremities normal to inspection; no cyanosis and no clubbing Skin no rashes, warm and dry Neurologic patellar DTR's 2+ bilat, sensation intact CN's II-XI intact bilaterally, moves all extremities and awake; no focal motor deficits Speech / Cognition: normal speech, no expressive aphasia, no receptive aphasia and normal cognition Motor/Sensory: no tremor, no pronator drift and no sensory deficit Gait: no ataxic gait and no wide-based gait Coordination: normal pfgunm-lo-piic test, normal mfhs-gl-kbba test, normal Romberg test, does not sway with eyes open and normal rapid alternating movements Psychiatric A+Ox3, euthymic affect Lymphatic no lymphedema Discharge Data Allergies Allergy/AdvReac Type Severity Reaction Status Date / Time amoxicillin Allergy Rash Verified 03/18/20 10:50 Consultations 03/18/20 13:06 ED Decision to Admit Stat 03/18/20 14:40 Consult Case Management - Discharge Planning Routine Consult Neurology Routine Ordered Studies 03/18/20 10:05 CT head/brain wo con Stat 03/18/20 11:04 MR brain wo/w con Stat 03/18/20 14:40 CT angio head w con Routine CT angio neck with con Routine CXR ECHO Hospital Course (1) CVA (cerebral vascular accident): Presented with dysarthria that resolved prior to admission CT Head without hemorrhage MRI brain confirmed Left frontotemporal acute infarct 1.0 x 1.6cm CTA Head and neck with R [employer] focal high grade stenosis, 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 -Tele without arrhythmia here LDL elevated at 155, HDL 40 HgbA1C 5.5% and normal ECHO normal and with NEGATIVE bubble study -most likely intracranial atherosclerosis from HTN/hyperlipidemia -started on asa, Plavix x 30 days, high intensity statin, and added lisinopril for BP management -STOP Plavix after 30 days and continue ASA 81mg daily alone -f/u with Neuro in 4 weeks, f/u PCP -carotid aneurysm d/w patient-recommend outpt follow up, BP control PT/OT/ST consults appreciated, no needs identified, doing well at time of discharge Neuro consult appreciated -will also dc to home with plans for 30 day event monitor to assess for occult Afib (2) Hypertension: BP elevated on admission likely autoregulation from CVA, improved but was also started n low dose lisinopril -continue lisinopril 5mg daily (3) Hyperlipidemia: Lipids as above start atorvastatin 80mg daily -f/u LFTs and lipids as outpt in 4-6 weeks F/u PCP (4) Intracranial atherosclerosis: as baove on CTA head -lipid and BP control (5) DVT prophylaxis: lovenox, ambulation (6) Discharge planning issues: Stable for dc to home Total Time Total Time Spent Total Time Spent (In Minutes): 45 min Total Time Includes: Examination of the Patient, Discharge Planning, Medication Reconciliation and Communication With Other Providers (Neurology) Discharge Plan Discharge Items Patient Disposition: Home - Self-Care Reason For Visit: STROKE Discharge Diagnosis: Acute ischemic stroke Condition on Discharge: Good Activity: Resume your previous activity Non-emergency contact: Primary Care Provider and Neurologist Call non-emergency contact if: you have any medication questions and your symptoms worsen Follow-up/Referrals: Yenny Corona MD [Primary Care Provider] - (Please contact Dr. Corona's office to see if she wants to see you sooner for a hospital follow up appointment. This may be a Tele-Health visit rather than a face to face encounter. ) Heidi Ye MD [Physician] - (Please arrange a Tele-Health visit with Dr. Ye in 4 weeks. This can be requested through a [employer] Portal Account. Please sign up for a portal account prior to being discharged.) Diet: Heart Healthy Addtl Attending Provider Instructions: You were admitted with speech difficulties and found to have a stroke. You were started on new medications to help prevent you from having more strokes in the future. It is very important that you take the blood thinners Aspirin and Plavix (clopidogrel) daily for 30 days, THEN STOP the Plavix and ONLY take aspirin 81mg once daily. You were also started on a cholesterol medicine called atorvastatin and a blood pressure pill called lisinopril. A cardiac event monitor will be mailed to you with instructions on how to put it on. This is to watch for any arrhythmias of the heart that can lead to an increased risk for stroke. Please follow up with the Neurologist and Dr. Corona as directed above. Risk Factors for Stroke: You can reduce your chances of stroke by working with your medical provider to adopt a healthy lifestyle. Some specific ways to lower your chance of stroke are: * If you are a smoker, now is the time to stop smoking cigarettes * If you are diabetic, improve the control of your blood sugars * Avoid excessive amounts of alcohol * Control high blood pressure * Lose weight if you are overweight * Be sure to lead an active lifestyle * Eat a healthy diet low in salt, cholesterol and fat You should know about other risk factors for stroke that you are unable to control. These include: * Age 55 years or older * Male gender * Certain racial groups: , or / * Family History of Stroke, Mini stroke or Heart Attack * Sickle Cell Disease Follow Up: It is important for you to keep your follow up appointments with your medical provider. Who to Call and When: Medical Emergencies: Call 911 immediately if you experience any of the following warning signs and symptoms of Stroke: * Sudden numbness or weakness of the face, arm or leg, especially on one side of the body * Sudden confusion, trouble speaking or understanding * Sudden trouble seeing in one or both eyes * Sudden trouble walking, dizziness, loss of balance or coordination * Sudden severe headache with no cause Do not delay calling 911 if you experience any warning signs or symptoms of a stroke. Delay in seeking medical attention may affect what treatments can be given to y ou. . Pending Studies at Discharge: No Stand-Alone Forms: Medications to Prevent Stroke, [facility] Medications and DC Order Prescriptions: New clopidogrel 75 mg Tablet 75 mg PO QAM Qty: 30 RF: 0 lisinopril [Zestril] 5 mg Tablet 5 mg PO HS Qty: 30 RF: 0 aspirin 81 mg Tablet,Delayed Release (Dr/Ec) 81 mg PO QAM Qty: 30 RF: 0 atorvastatin 80 mg tablet 80 mg PO DAILY Qty: 30 RF: 0 No Action No Known Home Medications RF: 0 Discharge Orders: Discharge Order (Routine); Ordered 03/19/20 Ordered By: Lani Desai Admission Data Admit Date/Time: 03/18/20 13:19 Attending Provider: Lani Desai Admit Provider: Paolo Rodriguez Primary Care Provider: Yenny Corona Other Providers: Santiago Vogel III ; Paolo Rodriguez Coding Level of Care Code D/C Day Management >30 mins Diagnoses CVA (cerebral vascular accident) I63.9 Laterality of affected vessel: unspecified Hypertension I10 Hyperlipidemia E78.5 Intracranial atherosclerosis I67.2 DVT prophylaxis Z29.9 Discharge planning issues Z02.9
--- NOTE | 2020-03-19 16:11 | Pharmacy Report ---
Pharmacist Stroke Counseling - Date of Service March 19, 2020 - Scope: Pharmacy has been consulted to provide medication discharge counseling for this patient admitted with ischemic stroke as per the Pharmacist Discharge Counseling for Stroke Patients Protocol. - Medications on Discharge: Home Medications Medication Instructions Recorded Confirmed No Known Home Medications 03/18/20 03/18/20 New Rx's Medication Instructions Recorded aspirin 81 mg PO QAM #30 tab 03/19/20 atorvastatin 80 mg PO DAILY #30 tab 03/19/20 clopidogrel 75 mg PO QAM #30 tab 03/19/20 lisinopril [Zestril] 5 mg PO HS #30 tab 03/19/20 - Action: The above medications, specifically ones for stroke treatment/prophylaxis, have been reviewed in detail with the patient and/or patient education courses sales representative(s) prior to discharge. This includes indication, common adverse reactions, drug interactions, and medication administration. Medication counseling has been employed using the teach-back method to ensure understanding. - Outcome: The patient and/or patient education courses sales representative(s) have demonstrated understanding of the medications. Please note, they are aware that the pharmacist will call them within 72 hours post-discharge to confirm that the appropriate medications are being taken and answer any further medication related questions the patient might have at that time. Contact information Individual to be contacted: Leticia Montano Relationship to patient (if applicable): Self Phone number: [phone] Best time to call: Any time Additional comments: * Discharge counseling done via phone call with patient in her room * Patient is very nervous due to stroke diagnosis; she was not taking any medications prior to admission. All Rx's are new. Patient does have insurance, but it is a high-deductible plan. She is worried about drug costs. Assured her all medications were generic; cost should be minimal. Aspirin available [id number] * Reviewed indications, dosing, and potential adverse effects of all medications. She is aware to monitor for s/sx bleeding/bruising, myalgia, and hypotension. She agrees to call PCP if any problems. She does have a home BP monitor and will check and record readings. * Explained need to control cholesterol (LDL = 155) and hypertension to reduce risk for recurrent stroke * She understands to take both Plavix + aspirin x 30 days, then will D/C Plavix and stay on aspirin monotherapy. * She had concerns about bleeding risk - advised her to be careful, avoid NSAID's, and monitor. Thank you for allowing pharmacy to be involved in the care of this patient. Please call [phone] or [phone] with any additional questions
--- NOTE | 2020-03-21 10:27 | Pharmacy Report ---
Pharmacist Post D/C Phone Note - Phone Note: Date of phone call: March 21, 2020. Individual with whom pharmacist spoke to: STACI ADE ESCALONA The following questions were reviewed during the phone call with responses listed below each: Can you tell me the medications that you are currently taking as well as when and how you take each medication? -See Table Below When have you missed any doses of your medications? - No missed doses What side effects are you having from your medications, specifically, the new medications you were started on? - None. No dizziness, bruising/bleeding, or muscle weakness/pain. What questions do you have about your medications? - Patient asked if okay to take all at HS, since lisinopril was scheduled that way. Instructed her that this would be fine. - Lipitor 40 mg and 80 mg were at the pharmacy when she went there but she picked up the 80 mg as per her discharge instructions. I told her this was correct. What problems are you having obtaining your medications? - None When is your next appointment with your primary care doctor? - April 05 w/ neurology - She spoke w/ someone in Dr. Corona's office yesterday but they did not mention upcoming appts. She currently has one scheduled for 04/13. I advised her to reach out to them in case they needed to see her sooner (via telephone or office visit) As per the Pharmacist Discharge Counseling for Stroke Patients Protocol, this phone call has been completed within 72 hours of discharge. Thank you for allowing us to be involved in the care of this patient. - Home Medications: Home Medications Medication Instructions Recorded Confirmed No Known Home Medications 03/18/20 03/20/20 New Rx's Medication Instructions Recorded aspirin 81 mg PO QAM #30 tab 03/19/20 atorvastatin 80 mg PO DAILY #30 tab 03/19/20 clopidogrel 75 mg PO QAM #30 tab 03/19/20 lisinopril [Zestril] 5 mg PO HS #30 tab 03/19/20
== END 2020-03-19 16:02 | disposition home or self-care (01) | DRG 66 ==
LOC: ED 09:46 → 2S 13:19 → SUATTDRO 13:19 → 2S 14:03

== ENCOUNTER 2020-07-13 13:15 | Inpatient (IN) ==
[2020-07-13] MEDS ORDERED: OPTIRAY 320 125ml IV ONE (13:31)
--- NOTE | 2020-07-13 13:34 | Emergency Department Note ---
Impression & Plan CVA (cerebral vascular accident), Received intravenous tissue plasminogen activator (tPA) in emergency department, Hypertension ED Provider Note NAME: STACI ESCALONA AGE: 64 SEX: F : 1955 ARRIVES VIA: Walk-In INFORMANT: Patient ED PROVIDER(S): Paolo Rooney DO CHIEF COMPLAINT: Right-sided numbness and weakness HPI: Patient is a 64-year-old female who presents the ER for right-sided numbness and weakness. This started about 30 minutes to an hour prior to arrival. She was downstairs doing laundry. She notes her whole right side of her body went numb including right arm and leg. Shortly after that her right leg was weak and she could not move it. She also notes that her right upper extremity was weak but not to the extent of her right lower extremity. The weakness has been improving in the right upper but the patient notes that she is not completely back to normal in the right upper extremity either. She is currently retired and takes care of her grandkids at home. ROS: See above HPI for pertinent positives & negatives. A total of 10 systems reviewed and were otherwise negative. PAST MEDICAL HISTORY:See Below PAST SURGICAL HISTORY:See Below FAMILY HISTORY:See Below SOCIAL HISTORY:See Below HOME MEDICATIONS:See Below ALLERGIES:See Below VITALS:See Below PHYSICAL EXAMINATION: GENERAL: Sitting up in bed, alert, well appearing, well nourished, no distress, non-toxic EYE EXAM: normal conjunctiva. PERRL and EOM'sintact. OROPHARYNX: no exudate, no erythema, lips, buccal mucosa, and tongue normal and mucous membranes are moist NECK: supple, no nuchal rigidity, no adenopathy, non-tender LUNGS: Clear to auscultation. Normal chest wall mechanics HEART: no murmurs, S1 normal and S2 normal ABDOMEN: abdomen soft, non-tender, normo-active bowel sounds, no masses, no rebound or guarding. BACK: Back is symmetrical on inspection and there is no deformity, no midline tenderness, no CVA tenderness. SKIN: no rashes and no bruising UPPER EXTREMITIES: upper extremities are grossly normal. LOWER EXTREMITIES: No pitting edema. NEURO EXAM: Normal sensorium, cranial nerves II-XII intact, normal speech, weakness with grasp/flexion/extension in the right upper extremity 3/5 as well as positive drift on the right upper extremity. No movement in the right lower extremity including 0 out of 5 flexion extension of the right hip, knee, ankle. MEDICAL DECISION MAKING: Patient is a 64-year-old female who presents the ER for right-sided deficit. Symptoms started about 1/2-hour to hour prior to arrival. She noticed numbness in the right upper and right lower extremity followed by weakness/complete loss of movement in the right lower and weakness in the right upper. Upon presentation stroke alert was immediately called. Symptoms had improved in the right upper extremity prior to arrival. Discussed with tele-stroke. TPA was mixed. I had a prolonged conversation with patient at bedside. Discussed the risk and benefits of TPA. She was agreeable to receiving TPA and she expressed this verbally using informed decision making. Patient was taken to CT. CT head was negative as well as CT angios the neck. CT of the head did show some stenosis of the left A2. After evaluation by [facility] tele-stroke. TPA was given. Prior to the administration of TPA I gave 2 doses of labetalol as blood pressure was initially 180s and did take some time to lower this. Blood pressure trended down to 160s. Symptoms in the right lower extremity did start to improve prior to TPA as her right upper had already prior to arrival but she still has significant deficit and was dragging the foot with movement when she stood up. After TPA patient had significant improvement in function with flexion extension of the right hip knee and ankle. Still had some numbness. Patient was monitored closely. Labs showed no significant leukocytosis or anemia. INR unremarkable. BMP with mild hypokalemia. LFTs bilirubin and troponin was negative. Patient was admitted to the hospital for CVA. Last stroke was March 18, 2020. Triage Nursing notes reviewed. Prior medical records reviewed Vital Signs: reviewed and remarkable for no significant abnormalities Differential diagnosis: Differential Diagnosis includes but is not limited to ischemic Stroke, hemo rrhagic stroke, bells palsy, mass, neoplasm, migraine headache, seizure, subarachnoid hemorrhage, TIA, and transient global amnesia. ER treatment provided: See below Diagnostics interpreted by me: ECG: Sinus rhythm rate 72 Normal axis No PVCs Normal QTC Cardiac Monitoring: An order was placed for continuous cardiac monitoring. The monitor shows a rate of 78 with sinus rhythm. Laboratory studies: As stated above and show below. Imaging studies: CT and CT angios of the head and neck show left A2 stenosis of 95% Consultation(s): [facility] tele-stroke neurology recommended TPA ED COURSE: Procedures: none Critical Care: I have personally spent 80 minutes of critical care time in the direct management of this patient. This includes bedside care, interpretation of diagnostic studies, and testing, discussion with consultants, patient, and family members, and other required patient management activities. This 80 minutes is in excess of all separately billable procedures. Past Med/Surg History Medical History CVA (cerebral vascular accident) (~02/2020) left external capsule / centrum semiovale stroke Hyperlipidemia Hypertension Surgical History H/O breast biopsy (~2002) percutaneous needle core. 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 [employer] How many Children do You have: 4 Other Information That Helps Us Care for You: No Feels Safe at Home: Yes Safety Concerns: Feels Safe At This Time Allergies Allergies Allergy/AdvReac Type Severity Reaction Status Date / Time amoxicillin Allergy Rash Verified 07/13/20 14:29 Home Meds Home Medications Medication Instructions Recorded Confirmed atorvastatin 80 mg PO HS 07/13/20 07/13/20 lisinopril [Zestril] 5 mg PO HS 07/13/20 07/13/20 Previous Rx's Medication Instructions Recorded aspirin 81 mg PO QAM #30 tab 03/19/20 Results & Data (ED) Vital Signs Vital Signs - 24 hr 07/13/20 13:19 07/13/20 13:28 07/13/20 13:38 Temperature 36.7 C Temperature Source Oral Pulse Rate 61 84 Pulse Rate [Left Finger] Pulse Rate from SpO2 Sensor 83 Pulse Rhythm Regular Pulse Strength Normal Respiratory Rate 16 14 Respiratory Effort / Characteristics Non-Labored Spontaneous Respiratory Depth Normal Respiratory Pattern Regular Blood Pressure 173/90 H 176/85 H 162/105 H Blood Pressure [Right Arm] Blood Pressure Mean 117 106 121 Blood Pressure Mean [Right Arm] Blood Pressure Position Sitting Blood Pressure Position [Right Arm] Pulse Oximetry 97 96 Oxygen Delivery Method Room Air Sepsis Recent Fever Within 48 Hours No Sepsis New/Unexplained Change in Mental Status No Sepsis Action Taken by Nursing No Action Required 07/13/20 13:41 07/13/20 13:52 07/13/20 13:55 Temperature Temperature Source Pulse Rate 96 H 91 H 84 Pulse Rate [Left Finger] Pulse Rate from SpO2 Sensor 97 H 90 Pulse Rhythm Pulse Strength Respiratory Rate Respiratory Effort / Characteristics Respiratory Depth Respiratory Pattern Blood Pressure 184/96 H 183/92 H 185/92 H Blood Pressure [Right Arm] Blood Pressure Mean 117 104 105 Blood Pressure Mean [Right Arm] Blood Pressure Position Blood Pressure Position [Right Arm] Pulse Oximetry 97 98 Oxygen Delivery Method Sepsis Recent Fever Within 48 Hours Sepsis New/Unexplained Change in Mental Status Sepsis Action Taken by Nursing 07/13/20 13:59 07/13/20 14:01 07/13/20 14:08 Temperature Temperature Source Pulse Rate 80 78 71 Pulse Rate [Left Finger] Pulse Rate from SpO2 Sensor 78 72 Pulse Rhythm Pulse Strength Respiratory Rate Respiratory Effort / Characteristics Respiratory Depth Respiratory Pattern Blood Pressure 161/79 H 173/72 H 172/83 H Blood Pressure [Right Arm] Blood Pressure Mean 116 122 88 Blood Pressure Mean [Right Arm] Blood Pressure Position Blood Pressure Position [Right Arm] Pulse Oximetry 99 97 Oxygen Delivery Method Sepsis Recent Fever Within 48 Hours Sepsis New/Unexplained Change in Mental Status Sepsis Action Taken by Nursing 07/13/20 14:10 07/13/20 14:17 07/13/20 14:22 Temperature Temperature Source Pulse Rate 72 74 Pulse Rate [Left Finger] 75 Pulse Rate from SpO2 Sensor 71 72 Pulse Rhythm Pulse Strength Respiratory Rate 20 Respiratory Effort / Characteristics Respiratory Depth Respiratory Pattern Blood Pressure 164/100 H 168/79 H Blood Pressure [Right Arm] 168/79 H Blood Pressure Mean 114 115 Blood Pressure Mean [Right Arm] 108 Blood Pressure Position Blood Pressure Position [Right Arm] Pulse Oximetry 96 94 97 Oxygen Delivery Method Sepsis Recent Fever Within 48 Hours Sepsis New/Unexplained Change in Mental Status Sepsis Action Taken by Nursing 07/13/20 14:30 07/13/20 14:32 07/13/20 14:41 Temperature Temperature Source Pulse Rate 70 74 Pulse Rate [Left Finger] 74 Pulse Rate from SpO2 Sensor 71 72 Pulse Rhythm Pulse Strength Respiratory Rate 22 Respiratory Effort / Characteristics Respiratory Depth Respiratory Pattern Blood Pressure 175/85 H 177/87 H Blood Pressure [Right Arm] 175/85 H Blood Pressure Mean 135 142 Blood Pressure Mean [Right Arm] 115 Blood Pressure Position Blood Pressure Position [Right Arm] Sitting Pulse Oximetry 98 98 97 Oxygen Delivery Method Sepsis Recent Fever Within 48 Hours Sepsis New/Unexplained Change in Mental Status Sepsis Action Taken by Nursing 07/13/20 14:47 07/13/20 15:02 Temperature Temperature Source Pulse Rate Pulse Rate [Left Finger] 73 82 Pulse Rate from SpO2 Sensor Pulse Rhythm Pulse Strength Respiratory Rate 20 20 Respiratory Effort / Characteristics Respiratory Depth Respiratory Pattern Blood Pressure Blood Pressure [Right Arm] 179/84 H 174/85 H Blood Pressure Mean Blood Pressure Mean [Right Arm] 115 114 Blood Pressure Position Blood Pressure Position [Right Arm] Sitting Sitting Pulse Oximetry 100 98 Oxygen Delivery Method Sepsis Recent Fever Within 48 Hours Sepsis New/Unexplained Change in Mental Status Sepsis Action Taken by Nursing Laboratory Data Result diagrams: 07/13/20 13:30 07/13/20 13:30 Lab Results 07/13/20 07/13/20 07/13/20 Range/Units 13:30 13:30 13:30 WBC 6.70 (4.8-10.8) K/uL RBC 4.53 (4.2-5.4) M/uL Hgb 13.8 (12.0-16.0) g/dL Hct 41.0 (37-47) % MCV 90.5 (80-100) fL MCH 30.5 (25-34) pg MCHC 33.7 (32-36) g/dL RDW Std Deviation 40.8 (36.4-46.3) fL RDW Coeff of Hema 12.2 (11.5-14.5) % Plt Count 217 (130-400) K/uL MPV 9.8 (7.4-10.4) fL Immature Gran % (Auto) 0.1 % Neut % (Auto) 71.8 % Lymph % (Auto) 15.2 % [place] % (Auto) 11.6 % Eos % (Auto) 1.0 % Baso % (Auto) 0.3 % Neut # (Auto) 4.80 (1.4-6.5) K/uL Lymph # (Auto) 1.02 L (1.2-3.4) K/uL [place] # (Auto) 0.78 H (0.11-0.59) K/uL Eos # (Auto) 0.07 (0-0.5) K/uL Baso # (Auto) 0.02 (0-0.2) K/uL Immature Gran # (Auto) 0.01 (0.00-0.02) K/uL PT 10.6 (9.0-12.0) Seconds INR 1.0 (0.9-1.1) APTT 25.3 (21.0-31.0) Seconds PTT Ratio 0.9 Sodium 137 (136-145) mmol/L Potassium 3.2 L (3.5-5.1) mmol/L Chloride 106 (98-107) mmol/L Carbon Dioxide 23 (21-32) mmol/L Anion Gap 8.0 (3-11) BUN 10 (7-18) mg/dl Creatinine 0.81 (0.6-1.2) mg/dl Est Cr Clr Drug Dosing 61.0 ml/min Est GFR ( Amer) 89.0 Est GFR (Non-Af Amer) 76.8 BUN/Creatinine Ratio 11.8 (10-20) Glucose 108 H (70-99) mg/dl POC Glucose (70-99) mg/dl Calcium 9.4 (8.5-10.1) mg/dl Magnesium 2.0 (1.8-2.4) mg/dl Total Bilirubin 0.8 (0.2-1) mg/dl AST 25 (15-37) U/L ALT 43 (12-78) U/L Alkaline Phosphatase 125 H (45-117) U/L Troponin I < 0.015 (0-0.045) ng/ml Total Protein 7.7 (6.4-8.2) gm/dl Albumin 4.2 (3.4-5.0) gm/dl Globulin 3.5 (2.5-4.0) gm/dl Albumin/Globulin Ratio 1.2 (0.9-2) Blood Type Antibody Screen 07/13/20 07/13/20 Range/Units 13:43 13:49 WBC (4.8-10.8) K/uL RBC (4.2-5.4) M/uL Hgb (12.0-16.0) g/dL Hct (37-47) % MCV (80-100) fL MCH (25-34) pg MCHC (32-36) g/dL RDW Std Deviation (36.4-46.3) fL RDW Coeff of Hema (11.5-14.5) % Plt Count (130-400) K/uL MPV (7.4-10.4) fL Immature Gran % (Auto) % Neut % (Auto) % Lymph % (Auto) % [place] % (Auto) % Eos % (Auto) % Baso % (Auto) % Neut # (Auto) (1.4-6.5) K/uL Lymph # (Auto) (1.2-3.4) K/uL [place] # (Auto) (0.11-0.59) K/uL Eos # (Auto) (0-0.5) K/uL Baso # (Auto) (0-0.2) K/uL Immature Gran # (Auto) (0.00-0.02) K/uL PT (9.0-12.0) Seconds INR (0.9-1.1) APTT (21.0-31.0) Seconds PTT Ratio Sodium (136-145) mmol/L Potassium (3.5-5.1) mmol/L Chloride (98-107) mmol/L Carbon Dioxide (21-32) mmol/L Anion Gap (3-11) BUN (7-18) mg/dl Creatinine (0.6-1.2) mg/dl Est Cr Clr Drug Dosing ml/min Est GFR ( Amer) Est GFR (Non-Af Amer) BUN/Creatinine Ratio (10-20) Glucose (70-99) mg/dl POC Glucose 103 H (70-99) mg/dl Calcium (8.5-10.1) mg/dl Magnesium (1.8-2.4) mg/dl Total Bilirubin (0.2-1) mg/dl AST (15-37) U/L ALT (12-78) U/L Alkaline Phosphatase (45-117) U/L Troponin I (0-0.045) ng/ml Total Protein (6.4-8.2) gm/dl Albumin (3.4-5.0) gm/dl Globulin (2.5-4.0) gm/dl Albumin/Globulin Ratio (0.9-2) Blood Type O Positive Antibody Screen NEGATIVE Administered Medications Sodium Chloride (Nss 1000ml) 1,000 mls @ 75 mls/hr IV .[id number] [facility] Stop: 07/14/20 18:55 Last Admin: 07/13/20 16:48 Dose: 75 mls/hr Documented by: [id number] Discontinued Medications Alteplase, Recombinant (Tpa For Stroke) 1 ea IV NOW STA; Protocol Stop: 07/13/20 13:49 Last Admin: 07/13/20 14:02 Dose: 1 ea Documented by: [id number] Alteplase, Recombinant 5.6 mg/ (Syringe) 5.6 mls @ 5.6 mls/min IV ONCE ONE Stop: 07/13/20 14:00 Last Admin: 07/13/20 14:02 Dose: 5.6 mls/min Documented by: [id number] Cosigned by: [id number] Alteplase, Recombinant 51 mg/ (EMPTY BAG) 51 mls @ 51 mls/hr IV ONCE ONE Stop: 07/13/20 14:01 Last Infusion: 07/13/20 16:26 Dose: 0 mls/hr Documented by: [id number] Cosigned by: [id number] Admin: 07/13/20 14:05 Dose: 51 mls/hr Documented by: [id number] Cosigned by: [id number] Potassium Chloride (K Nadir / Wtr) 10 meq in 100 mls @ 100 mls/hr IV Q1H [facility] Stop: 07/13/20 17:14 Last Infusion: 07/13/20 17:27 Dose: 0 mls/hr Documented by: [id number] Admin: 07/13/20 16:17 Dose: 100 mls/hr Documented by: [id number] Infusion: 07/13/20 16:10 Dose: 100 mls/hr Documented by: [id number] Admin: 07/13/20 15:10 Dose: 100 mls/hr Documented by: [id number] Potassium Chloride (K Nadir / Wtr) 10 meq in 100 mls @ 100 mls/hr IV Q1H [facility] Stop: 07/13/20 18:44 Last Infusion: 07/13/20 19:20 Dose: 0 mls/hr Documented by: [id number] Admin: 07/13/20 18:14 Dose: 100 mls/hr Documented by: [id number] Infusion: 07/13/20 18:11 Dose: 0 mls/hr Documented by: [id number] Admin: 07/13/20 17:08 Dose: 100 mls/hr Documented by: [id number] Ioversol (Optiray 320 125ml) 120 ml IV ONCE ONE Stop: 07/13/20 13:32 Last Admin: 07/13/20 13:31 Dose: 120 ml Documented by: [id number] Labetalol HCl (Labetalol Hcl Iv 5 Mg/Ml 20ml) 10 mg IV NOW STA Stop: 07/13/20 13:49 Last Admin: 07/13/20 13:45 Dose: 10 mg Documented by: [id number] Cosigned by: [id number] Discharge Plan Visit Data Chief Complaint: Stroke/CVA Symptoms Stated Complaint: right side numbness ED Provider: Paolo Rooney Discharge Problem: CVA (cerebral vascular accident), Received intravenous tissue plasminogen activator (tPA) in emergency department, Hypertension Patient Disposition: Admitted As Inpatient Discharge Instructions Interventions: ED Discharge Assessment Last Done: 07/13/20 15:43 Discharge Problem: CVA (cerebral vascular accident) Qualifiers: CVA mechanism: unspecified Qualified Code(s): I63.9 - Cerebral infarction, unsp ecified Hypertension Qualifiers: Hypertension type: unspecified Qualified Code(s): I10 - Essential (primary) hy pertension
[2020-07-13 13:39] LABS: Basophils # (auto) 0.02 K/uL (0-0.2); Basophils % (auto) 0.3 %; Eosinophils # (auto) 0.07 K/uL (0-0.5); Hemoglobin 13.8 g/dL (12.0-16.0); Immature Granulocytes # (auto) 0.01 K/uL (0.00-0.02); Immature Granulocytes % (auto) 0.1 %; Lymphocytes # (auto) 1.02 K/uL (1.2-3.4); Lymphocytes % (auto) 15.2 %; Mean Corpuscular Hemoglobin 30.5 pg (25-34); Mean Corpuscular Hgb Conc 33.7 g/dL (32-36); Mean Corpuscular Volume 90.5 fL (80-100); Mean Platelet Volume 9.8 fL (7.4-10.4); Monocytes # (auto) 0.78 K/uL (0.11-0.59); Monocytes % (auto) 11.6 %; Neutrophils % (auto) 71.8 %; Platelet Count 217 K/uL (130-400); RDW Coefficient of Variation 12.2 % (11.5-14.5); RDW Standard Deviation 40.8 fL (36.4-46.3); Red Blood Count 4.53 M/uL (4.2-5.4)
--- NOTE | 2020-07-13 13:42 | CT Scan Report ---
CT head/brain wo con CLINICAL HISTORY: 64 years-old Female with Stroke evaluation . Acute strokelike symptoms TECHNIQUE: Multiple axial CT images of the head were obtained without contrast. A dose lowering tech nique was utilized adhering to the principles of ALARA. COMPARISON: CTA head neck of same day, head CT 03/18/2020. FINDINGS: No acute intracranial hemorrhage, midline shift, intracranial mass, hydrocephalus, territorial ischem ia or abnormal extra-axial collection. Age-related involutional changes. Patchy white matter hypodens ities suggestive of chronic microvascular ischemic disease. Cerebral vascular calcifications. Encepha lomalacia of the periventricular left frontal temporal distribution from remote infarct. The calvarium is intact. The paranasal sinuses, mastoid air cells, and middle ear cavities are clear . IMPRESSION: No acute intracranial abnormality. ACT 112: Negative or not required by law. The above report was generated using voice recognition software. It may contain grammatical, syntax o r spelling errors. Electronically signed by: Phill Caruso M.D. 07/13/2020 1:40 PM
--- NOTE | 2020-07-13 13:46 | CT Scan Report ---
CT angio neck with con HISTORY: Mental status change Stroke evaluation TECHNIQUE: Multiaxial CT angiography of the neck was performed IV contrast: 120 cc nonionic All momo urements were calculated based on NASCET criteria. Maximum intensity projection images were also obt ained. A dose lowering technique was utilized adhering to the principles of ALARA. COMPARISON STUDY: None. FINDINGS: The aortic arch and proximal great vessels are widely patent. There is no significant sten osis, occlusion, or dissection identified within the bilateral common carotid, internal carotid, or v ertebral arteries. IMPRESSION: No significant stenosis, occlusion, or dissection identified within the carotid or vertebral arteries . Minimal scattered plaque formation ACT 112: Negative or not required by law. The above report was generated using voice recognition software. It may contain grammatical, syntax or spelling errors. Electronically signed by: Charles Orozco M.D. 07/13/2020 1:44 PM
[2020-07-13] MEDS ORDERED: LABETALOL HCL IV 5 MG/ML 20ML IV ONE (13:47)
[2020-07-13] MEDS ORDERED: LABETALOL HCL IV 5 MG/ML 20ML IV STA (13:48)
[2020-07-13] MEDS ORDERED: TPA for Stroke IV STA (13:48)
[2020-07-13 13:52] LABS: Partial Thromboplastin Ratio 0.9; Partial Thromboplastin Time 25.3 Seconds (21.0-31.0); Prothrombin Time 10.6 Seconds (9.0-12.0)
--- NOTE | 2020-07-13 13:54 | CT Scan Report ---
CT angio head w con CLINICAL HISTORY: 64 years-old Female with Stroke evaluation . Acute strokelike symptoms COMPARISON STUDY: Head CT and CTA head neck of same day, CTA head 03/18/2020 TECHNIQUE: Following the IV administration of 120 cc of Optiray 320, CT angiogram of the brain was pe rformed from the skull base to the vertex. Images are reviewed in the axial, sagittal, and coronal pl anes. 3-D MIPS images are created and assessed. IV contrast was administered without complication. Al l measurements were obtained according to NASCET criteria. A dose lowering technique was utilized adh ering to the principles of ALARA. FINDINGS: Imaged internal carotid arteries appear patent. Calcified plaque of the cavernous and supraclinoid se gments without high-grade stenosis. 2.6 mm saccular outpouching involves the caudal and lateral aspec t of the carotid terminus on the right, image 77 series 5 which is unchanged. Mild multifocal luminal narrowing of the middle cerebral arteries likely secondary to atheromatous plaque. As a new focal ar ea of high-grade stenosis involving the A2 segment of the left anterior cerebral artery, image 118 se holly 5. The vertebral arteries are codominant and are patent. Calcific plaque of the V4 segment right vertebral artery results in less than 50% luminal narrowing. There is suggestion of a fenestrated ba silar artery. Basilar artery is patent. 2 mm focal area of at least moderate grade stenosis involves the P1 segment right posterior cerebral artery on image 87 series 3. Mild and moderate multifocal lum inal narrowing of the bilateral posterior cerebral arteries. No dissection or proximal branch occlusi on. Cerebral venous sinuses appear patent. No abnormal intra-axial enhancement. Patchy white matter h ypodensities compatible with chronic microvascular ischemic disease. IMPRESSION: 1. New focal area of high-grade stenosis involves the A2 segment left anterior cerebral artery which is new from the 03/18/2020 exam. 2. 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 3. Atherosclerotic vascular disease with multifocal mild and moderate luminal narrowing as above. 4. Fenestrated basilar artery. ACT 112: Negative or not required by law. The above report was generated using voice recognition software. It may contain grammatical, syntax o r spelling errors. Electronically signed by: Phill Caruso M.D. 07/13/2020 1:53 PM
[2020-07-13 13:55] LABS: Albumin Level 4.2 gm/dl (3.4-5.0); Aspartate Aminotransferase 25 U/L (15-37); BUN Creatinine Ratio 11.8 (10-20); Blood Urea Nitrogen 10 mg/dl (7-18); Calcium 9.4 mg/dl (8.5-10.1); Carbon Dioxide 23 mmol/L (21-32); Chloride 106 mmol/L (98-107); Est GFR (Non-African American) 76.8; Glucose 108 mg/dl (70-99); Potassium 3.2 mmol/L (3.5-5.1); Sodium 137 mmol/L (136-145)
[2020-07-13] MEDS ORDERED: ALTEPLASE BOLUS IV ONE (13:59)
[2020-07-13] MEDS ORDERED: ALTEPLASE, RECOMBINANT 51 MG in EMPTY BAG 0 ML IV ONE (14:00)
[2020-07-13] MEDS ORDERED: PRIMARY PLUMSET, PE LINED TUBING, 113 IN, NON-DEHP (2260-0500) IV ONE (14:00)
[2020-07-13 14:02] LABS: Alanine Aminotransferase 43 U/L (12-78); Albumin Globulin Ratio 1.2 (0.9-2); Alkaline Phosphatase 125 U/L (45-117); Bilirubin,Total 0.8 mg/dl (0.2-1); Globulin 3.5 gm/dl (2.5-4.0); Total Protein 7.7 gm/dl (6.4-8.2); Troponin I < 0.015 ng/ml (0-0.045)
--- NOTE | 2020-07-13 14:35 | XRay Report ---
XR chest 1V portable HISTORY: 64 years-old Female cva acute strokelike symptoms COMPARISON: Chest radiographs 05/30/2014 TECHNIQUE: Portable AP view of the chest FINDINGS: Cardiac silhouette is mildly enlarged. Mild chronic interstitial coarsening of the lung bases. No pne umothorax, large pleural effusion, overt pulmonary edema or airspace consolidation typical for pneumo [place]. Degenerative changes of the shoulders and spine. IMPRESSION: No acute process. ACT 112: Negative or not required by law. The above report was generated using voice recognition software. It may contain grammatical, syntax o r spelling errors. Electronically signed by: Phill Caruso M.D. 07/13/2020 2:34 PM
[2020-07-13] MEDS ORDERED: POTASSIUM CHLORIDE 10 MEQ / 100ML WTR IV ONE (15:04)
--- NOTE | 2020-07-13 15:04 | History & Physical Report ---
Date of Service July 13, 2020 Assessment & Plan (1) CVA (cerebral vascular accident): Patient with right-sided weakness and numbness at presentation. s/p CT head without ICH. s/p CTA head/neck -- head showed occlusion of left TYRESE. Code stroke alert called; neurologist with [facility] advised TPA. TPA given w/o incident. By the time of my assessment her symptoms were essentially gone. Presentation most likely due to embolus. Prior work-up in 02/2020 when she suffered her first stroke was unrevealing including echo with bubble study, 30-day event monitor, CTAs, etc. Today's stroke occurred while taking aspirin. This is concerning that she has now suffered 2 strokes in 4 months. Hypercoagulable state from occult cancer? Hypercoagulable state from hereditary factors? Paroxysmal a.fib? Other? Admit to ICU. MRI brain. CT head at 24-hours post-TPA to r/o hemorrhagic transformation. Neurology consult. PT, OT, speech evals. Lipids, a1c in am. High-intensity statin. Send hypercoagulable work-up including factor V Leiden, prothrombin gene mutation, etc. Would advise cancer screenings if not already done -- mammogram, colonoscopy, etc. Defer choice of antiplatelet or anticoagulant to neurology/critical care. DVT proph with lovenox starting tomorrow if CT head is negative. Consider looking at aortic arch for thrombus/plaque if all else is negative. Consider implantation of loop recorder for longer-term monitoring for PAF. (2) Stroke due to occlusion of left anterior cerebral artery: CTA head with left TYRESE high-grade stenosis - presumably due to embolus as the ACAs were patent on 02/2020 CTA. ER attending spoke with [facility] - no indication for acute transfer to tertiary care in light of receiving TPA. (3) Received intravenous tissue plasminogen activator (tPA) in emergency depart ment: (4) Hypertension: Allow permissive HTN in light of acute stroke. HOLD VENTURA. (5) Hyperlipidemia: Check lipids in am. Cont high-intensity statin. (6) Hypokalemia: replaced IV. repeat BMP am. mag level wnl. (7) Dental abscess: clindamycin TID. f/u with dentist post-d/c. (8) DVT prophylaxis: start SC lovenox or heparin TOMORROW afternoon if 24-hour head CT is neg for blood. updated at bedside. History of Present Illness Chief Complaint: right-sided weakness/numbness Primary Care Provider: Yenny Corona MD 64yo female with left-sided stroke in 02/2020 (had transient aphasia) with no long-standing symptoms, HTN, and hyperlipidemia who presents with acute onset of right sided weakness and numbness. 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 She then developed right arm weakness but the right leg weakness was worse. Shortly after her right arm and leg were numb. Never had dysphagia, dysarthria, left-sided symptoms, vertigo, or ataxia. At 1223 she called the patient's on his cell phone. He immediately came home and brought her to [facility]. Stroke alert was called upon arrival. After consultation with [facility] a decision was made to proceed with TPA. Patient's symptoms began to slightly improve just before the TPA was hung. By the time of my assessment the TPA had completed and her right-sided symptoms were essentially resolved. Over the preceding few days she has had no infectious symptoms, no TIA symptoms, and has felt well. She reports that following her stroke in 02/2020 she completed an event monitor. The event monitor report shows 1 brief 12-beat episode of PSVT only. She took asa/plavix TOGETHER x 1 month post-CVA, then changed to aspirin monotherapy thereafter. Allergies Allergy/AdvReac Type Severity Reaction Status Date / Time amoxicillin Allergy Rash Verified 07/13/20 14:29 Home Medications Home Medications Medication Instructions Recorded Confirmed Type aspirin 81 mg PO QAM #30 tab 03/19/20 07/13/20 Rx atorvastatin 80 mg PO HS 07/13/20 07/13/20 History lisinopril [Zestril] 5 mg PO HS 07/13/20 07/13/20 History Past Med/Surg History Medical History CVA (cerebral vascular accident) (~02/2020) left external capsule / centrum semiovale stroke Hyperlipidemia Hypertension Surgical History H/O breast biopsy (~2002) percutaneous needle core. 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 How many Children do You have: 4 Other Information That Helps Us Care for You: No Feels Safe at Home: Yes Safety Concerns: Feels Safe At This Time Review of Systems Constitutional: no fever, no chills, no fatigue, no anorexia and no weight loss Eyes: no blind spots and no worsening vision Ear, Nose, Mouth, Throat: + dental pain (currently being treated for dental abscess) no loss of taste or smell Respiratory: no cough and no dyspnea Cardiovascular: no chest pain, no orthopnea, no paroxysmal nocturnal dyspnea, no palpitations and no edema Gastrointestinal: no abdominal pain, no nausea, no vomiting, no constipation, no diarrhea/loose stools and no blood in stools Genitourinary: no dysuria Musculoskeletal: no joint pain and no myalgia Neurologic: as per Subjective / HPI, + localized weakness and + loss of sensation; no headache(s) Psychiatric: no depression Endocrine: denies diabetes Hematologic / Lymphatic: + easy bruising; no easy bleeding Allergy / Immunological: no cough and no rash Physical Exam Constitutional: well developed and well nourished; no acute distress and no altered mental status Eyes: normal visual katz by confrontation, PERRL and EOM intact bilaterally ENMT: external ear and nose normal, oropharynx normal Neck: trachea midline, no thyromegaly Respiratory: normal respiratory effort, lungs clear to auscultation Cardiovascular: Rate/Rhythm: regular rate and regular rhythm Heart Sounds: normal S1 and normal S2; no murmur Vessels: posterior tibial pulses present and dorsalis pedis pulses present; no JVD Extremities: no edema Gastrointestinal (Abdomen): normal bowel sounds, soft, nontender, no hepatosplenomegaly Musculoskeletal: no cyanosis or clubbing, extremities motor strength 5/5 OA changes of all fingerse Skin: + ecchymosis (old bruises along left tibia) Neurologic: patellar DTR's 2+ bilat, sensation intact and PERRL, EOMI, accommodation nl, no face palsy, no dysarthria CN's II-XI intact bilaterally, plantar reflexes intact bilaterally and awake; no focal motor deficits and not confused Speech / Cognition: normal speech Coordination: normal [id number]-st-[id number] test Psychiatric: A+Ox3, euthymic affect Lymphatic: no cervical lymphadenopathy Results & Data Results & Data ([facility]) Vital Signs (Past 12 Hours) Vital Signs Temp Pulse Pulse Resp BP BP Pulse Ox 07/13/20 14:47 73 20 179/84 H 100 07/13/20 14:41 74 177/87 H 97 07/13/20 14:32 74 22 175/85 H 98 07/13/20 14:30 70 175/85 H 98 07/13/20 14:22 74 168/79 H 97 07/13/20 14:17 75 20 168/79 H 94 07/13/20 14:10 72 164/100 H 96 07/13/20 14:08 71 172/83 H 97 07/13/20 14:01 78 173/72 H 99 07/13/20 13:59 80 161/79 H 07/13/20 13:55 84 185/92 H 07/13/20 13:52 91 H 183/92 H 98 07/13/20 13:41 96 H 184/96 H 97 07/13/20 13:38 84 14 162/105 H 96 07/13/20 13:28 176/85 H 07/13/20 13:19 36.7 C 61 16 173/90 H 97 Laboratory Results Laboratory Results - last 24 hr 07/13/20 07/13/20 07/13/20 13:30 13:30 13:30 WBC 6.70 RBC 4.53 Hgb 13.8 Hct 41.0 MCV 90.5 MCH 30.5 MCHC 33.7 RDW Std Deviation 40.8 RDW Coeff of Hema 12.2 Plt Count 217 MPV 9.8 Immature Gran % (Auto) 0.1 Neut % (Auto) 71.8 Lymph % (Auto) 15.2 Russell % (Auto) 11.6 Eos % (Auto) 1.0 Baso % (Auto) 0.3 Neut # (Auto) 4.80 Lymph # (Auto) 1.02 L Russell # (Auto) 0.78 H Eos # (Auto) 0.07 Baso # (Auto) 0.02 Immature Gran # (Auto) 0.01 PT 10.6 INR 1.0 APTT 25.3 PTT Ratio 0.9 Sodium 137 Potassium 3.2 L Chloride 106 Carbon Dioxide 23 Anion Gap 8.0 BUN 10 Creatinine 0.81 Est Cr Clr Drug Dosing 61.0 Est GFR ( Amer) 89.0 Est GFR (Non-Af Amer) 76.8 BUN/Creatinine Ratio 11.8 Glucose 108 H POC Glucose Calcium 9.4 Magnesium 2.0 Total Bilirubin 0.8 AST 25 ALT 43 Alkaline Phosphatase 125 H Troponin I < 0.015 Total Protein 7.7 Albumin 4.2 Globulin 3.5 Albumin/Globulin Ratio 1.2 Nasal Screen MRSA (PCR) Blood Type Antibody Screen 07/13/20 07/13/20 07/13/20 13:43 13:49 16:08 WBC RBC Hgb Hct MCV MCH MCHC RDW Std Deviation RDW Coeff of Hema Plt Count MPV Immature Gran % (Auto) Neut % (Auto) Lymph % (Auto) Russell % (Auto) Eos % (Auto) Baso % (Auto) Neut # (Auto) Lymph # (Auto) Russell # (Auto) Eos # (Auto) Baso # (Auto) Immature Gran # (Auto) PT INR APTT PTT Ratio Sodium Potassium Chloride Carbon Dioxide Anion Gap BUN Creatinine Est Cr Clr Drug Dosing Est GFR ( Amer) Est GFR (Non-Af Amer) BUN/Creatinine Ratio Glucose POC Glucose 103 H Calcium Magnesium Total Bilirubin AST ALT Alkaline Phosphatase Troponin I Total Protein Albumin Globulin Albumin/Globulin Ratio Nasal Screen MRSA (PCR) Negative Blood Type O Positive Antibody Screen NEGATIVE Diagnostic Findings 1. CT head - FINDINGS: No acute intracranial hemorrhage, midline shift, intracranial mass, hydrocephalus, territorial ischemia or abnormal extra-axial collection. Age- related involutional changes. Patchy white matter hypodensities suggestive of chronic microvascular ischemic disease. Cerebral vascular calcifications. Encephalomalacia of the periventricular left frontal temporal distribution from remote infarct. The calvarium is intact. The paranasal sinuses, mastoid air cells, and middle ear cavities are clear. IMPRESSION: No acute intracranial abnormality. 2. CTA head - IMPRESSION: 1. New focal area of high-grade stenosis involves the A2 segment left anterior cerebral artery which is new from the 03/18/2020 exam. 2. 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 3. Atherosclerotic vascular disease with multifocal mild and moderate luminal narrowing as above. 4. Fenestrated basilar artery. 3. CTA neck - IMPRESSION: No significant stenosis, occlusion, or dissection identified within the carotid or vertebral arteries. Minimal scattered plaque formation 4. CXR - no infiltrates. 5. EKG - my reading - NSR, normal axis, normal intervals, no ST changes. Code Status & VTE Plan Code Status full code VTE Prophylaxis Plan VTE Prophylaxis will be ordered: Yes PG Care Time/CCT Total # of Minutes Spent Total Time Spent with Patient: Total time spent is greater than 50% in coordination of care (as documented) at patient's floor/unit and/or counseling patient: Coding Level of Care Code 64501 Initial Inpt Care Lvl 3 Diagnoses CVA (cerebral vascular accident) I63.422 Laterality of affected vessel: left CVA mechanism: embolism Precerebral and cerebral artery: anterior cerebral artery Stroke due to occlusion of left anterior cerebral artery I63.522 Received intravenous tissue plasminogen activator (tPA) in emergency department Z92.82 Hypertension I10 Hypertension type: essential hypertension Hyperlipidemia E78.2 Hyperlipidemia type: mixed hyperlipidemia Hypokalemia E87.6 Dental abscess K04.7 DVT prophylaxis Z29.9 (1) Hyperlipidemia Hyperlipidemia type: mixed hyperlipidemia Qualified Code(s): E78.2 - Mixed hyperlipidemia (2) Hypertension Hypertension type: essential hypertension Qualified Code(s): I10 - Essential (primary) hypertension (3) CVA (cerebral vascular accident) Laterality of affected vessel: left CVA mechanism: embolism Precerebral and cerebral artery: anterior cerebral artery Qualified Code(s): I63.422 - Cerebral infarction due to embolism of left anterior cerebral artery
[2020-07-13] MEDS: POTASSIUM CHLORIDE / WTR 10 MEQ/100 ML PLCT IV SCH ×4 (15:10→18:14)
[2020-07-13] MEDS ORDERED: ICU PROTOCOL FOR HYPERGLYCEMIA PRN (16:16)
[2020-07-13] MEDS ORDERED: PHARMACIST DISCHARGE MED REC CONSULT PRN (16:16)
--- NOTE | 2020-07-13 16:25 | Critical Care Consultation ---
Date of Consultation July 13, 2020 Assessment & Plan (1) Acute CVA (cerebrovascular accident): Reason Critically Ill: 64 yo F PMHx HTN, HLD, recent CVA February 2020 presented to ER for 30-60 minutes of R sided arm/leg weakness and numbness, admitted for acute CVA and transferred to ICU for monitoring following tPA administration. Neuro - [facility] ICU: negative Sedation: none Analgesia: none Acute CVA s/p tPA with recent history of CVA 02/2020: - Today patient presented to ED for R sided arm/leg numbness and weakness that started 30-60 minutes prior to arrival to ER. - Stroke alert called and patient had CT Head, Head and Neck CTA. - CT Head: No acute intracranial abnormality. - CTA Head: New focal area of high-grade stenosis involves the A2 segment left anterior cerebral artery which is new from the 03/18/2020 exam. - CTA Neck: No significant stenosis, occlusion, or dissection identified within the carotid or vertebral arteries. Minimal scattered plaque formation. - Patient received tPA with rapid resolution in R sided deficits after treatment. - Hgb A1c and lipid panel ordered for AM labs. - Hypercoagulability workup ordered. - Event monitor following CVA in 02/2020 showed one brief episode of SVT, otherwise normal. - She took aspirin/Plavix for one month following CVA, then changed to aspirin monotherapy following. - Given failure on only aspirin therapy, will likely need DAPT moving forward. - Continue atorvastatin 80mg daily. - Monitor BP; goal SBP <180, DBP <100. Can resume lisinopril if BP climbs. - MRI ordered. - Echo to be completed tomorrow. - Frequent neuro checks. Cardiac - HTN: - As above, will resume lisinopril after monitoring closely for BP as above. HLD: - Continue atorvastatin 80mg daily. Respiratory - - No current respiratory concerns. - Continuous pulse ox. GI - - Heart Healthy diet starting at dinner. RENAL/LYTES - Hypokalemia: - On arrival with Potassium 3.2; K Riders 20 meq IV started in ED. - Have added additional 20meq IV KRiders. - Repeat BMP tomorrow AM. - - No concerns at this time. - Monitor Is/Os. ENDO - - ICU hyperglycemia protocol. HEME - - Stable H&H. - Will monitor for any drops in the setting of tPA. ID - - No concerns for infection at this time. - Monitor fever curve. INTEGUMENTARY - - No current concerns. LINES/IV ACCESS - - PIVs intact. DVT PROPHYLAXIS - - Medical therapy contraindicated in the setting of recent tPA administration. - SCDs. CODE STATUS - - Full code. Thank you for allowing us to be part of this patient's care. Please refer to Dr. Castillo's documentation for any further recommendations. (2) Received intravenous tissue plasminogen activator (tPA) in emergency department: (3) Hyperlipidemia: (4) Hypertension: (5) Hypokalemia: Supervising Physician Co-Signing Physician Notes Jerica Massey was the resident-physician during care of patient. I separately evaluated patient for bird portions of the history and the exam. I was present during the critical portion of medical decision making, and I discussed the case with the resident. I generally agree with the findings and plan except for any additions/exceptions noted. Patient seen and examined at bedside. Patient came in with right upper extremity and right lower extremity weakness which fell into the time continue to give TPA. Patient successfully got TPA. At the time of examination patient had no residual deficit. She was awake alert oriented x3. Denied any complaints. Blood pressure was systolic in the mid 130s Continue with neurochecks. Keep systolic blood pressure less than 180. And diastolic less than 105 Patient has no murmur on physical examination of the heart. She does have a high-grade stenosis of the A2 segment of the left anterior cerebral artery. Patient used to be on aspirin alone. Will need aspirin plus Plavix. Patient was also taking clindamycin for an abscess of the tooth. Would continue with the same. Blood cultures have been ordered. Follow-up 2D echo to look for any vegetations. Repeat CT head in 24 hours. I have personally spent 37 minutes of critical care time in the direct management of this patient. This is a life/limb threatening event. This includes time spent evaluating patient, direct bedside care, chart review, placing orders, interpretation of diagnostic studies, discussion with consultants, patient, and/or family members regarding treatment decisions, as well as other required patient management activities. This time is exclusive of all separately billable procedures, and teaching time and separate from and in addition to any other critical care service time. History of Present Illness Reason for Consultation: Acute CVA s/p tPA Requesting Physician: Dr. Ley Attending Physician: Jun Ley History of Present Illness 64 yo F PMHx HTN, HLD, recent CVA February 2020 presented to ER for 30-60 minutes of R sided arm/leg weakness and numbness, without associated dysphagia, slurred speech, AMS, fall, chest pain or palpitations, SOB, recent illness. In ED had physical exam findings concerning for acute CVA. CTA Head showed focal area of stenosis on L side not seen on prior study in February. [facility] consult performed and decision made to give tPA. Shortly following tPA patient started to have improvement, and eventually resolution of her R sided weakness. [employer] service consulted for monitoring following tPA administration. On my interview patient is without symptoms following tPA administration. Denies CP, SOB, palpitations, headache or dizziness, nausea, weakness of any limb, difficulty with speech or swallowing, blurry vision, AMS. Patient reports that during her last stroke in February she had a Holter monitor for several days looking for arrhythmia and was told she did not have one. No personal history of diabetes. Denies former smoking. No alcohol or illicit drug use. Allergies Allergy/AdvReac Type Severity Reaction Status Date / Time amoxicillin Allergy Rash Verified 07/13/20 14:29 Home Medications Home Medications Medication Instructions Recorded Confirmed Type aspirin 81 mg PO QAM #30 tab 03/19/20 07/13/20 Rx atorvastatin 80 mg PO HS 07/13/20 07/13/20 History lisinopril [Zestril] 5 mg PO HS 07/13/20 07/13/20 History Patient History Medical History CVA (cerebral vascular accident) (~02/2020) left external capsule / centrum semiovale stroke Hyperlipidemia Hypertension Surgical History H/O breast biopsy (~2002) percutaneous needle core. 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 [employer] How many Children do You have: 4 Other Information That Helps Us Care for You: No Feels Safe at Home: Yes Safety Concerns: Feels Safe At This Time Review of Systems Review of Systems: All systems reviewed & are unremarkable except as noted in Subjective Physical Exam Constitutional: WD/WN, vitals as above Eyes: PERRL, conjunctivae normal, anicteric sclerae ENMT: external ear and nose normal, oropharynx normal Neck: normal visual inspection Respiratory: normal respiratory effort, lungs clear to auscultation Cardiovascular: RRR, no murmur, no edema Gastrointestinal (Abdomen): normal bowel sounds, soft, nontender, no hepatosplenomegaly Musculoskeletal: no cyanosis or clubbing, extremities motor strength 5/5 Skin: no rashes, warm and dry Neurologic: CN's II-XI intact bilaterally and moves all extremities; no focal motor deficits Speech / Cognition: normal speech Motor/Sensory: no tremor Psychiatric: A+Ox3, euthymic affect Results & Data Results & Data ([facility]) Vital Signs (Past 12 Hours) Vital Signs Temp Pulse Pulse Resp BP BP Pulse Ox 07/13/20 16:15 76 21 137/72 98 07/13/20 16:03 77 24 153/76 H 98 07/13/20 16:02 74 18 137/72 98 07/13/20 15:42 76 20 145/81 H 98 07/13/20 15:31 77 16 144/95 H 96 07/13/20 15:16 80 20 174/85 H 98 07/13/20 15:02 82 20 174/85 H 98 07/13/20 14:47 73 20 179/84 H 100 07/13/20 14:41 74 177/87 H 97 07/13/20 14:32 74 22 175/85 H 98 07/13/20 14:30 70 175/85 H 98 07/13/20 14:22 74 168/79 H 97 07/13/20 14:17 75 20 168/79 H 94 07/13/20 14:10 72 164/100 H 96 07/13/20 14:08 71 172/83 H 97 07/13/20 14:01 78 173/72 H 99 07/13/20 13:59 80 161/79 H 07/13/20 13:55 84 185/92 H 07/13/20 13:52 91 H 183/92 H 98 07/13/20 13:41 96 H 184/96 H 97 07/13/20 13:38 84 14 162/105 H 96 07/13/20 13:28 176/85 H 07/13/20 13:19 36.7 C 61 16 173/90 H 97 Resident Activity Tracking Resident Involvement: Resident Care Provided Care Provided: Adult Hospital Medicine (1) Hyperlipidemia Hyperlipidemia type: unspecified Qualified Code(s): E78.5 - Hyperlipidemia, unspecified (2) Hypertension Hypertension type: essential hypertension Qualified Code(s): I10 - Essential (primary) hypertension
[2020-07-13] MEDS: SODIUM CHLORIDE 0.9% 1000ML 1,000 ML IV SCH (16:48)
[2020-07-13] MEDS ORDERED: LORazepam 0.5 MG TAB PO STA ×2 (16:54→20:21)
--- NOTE | 2020-07-13 18:48 | Billing Data ---
Date of Service July 13, 2020 Coding Level of Care Code Critical Care 1st 30-74 mins Time Spent (min) 37
--- NOTE | 2020-07-13 21:35 | Magnetic Resonance Report ---
MR brain wo con HISTORY: 64 years-old Female stroke acute strokelike symptoms COMPARISON: Head CT of same day, brain MRI 03/18/2020 TECHNIQUE: Multiplanar multisequence MRI the brain was obtained without the use of IV contrast. FINDINGS: 7 mm area of subtle ill-defined restricted diffusion involves the left parafalcine frontal lobe near the vertex on image 20 series 4 with decreased signal on ADC map and mildly increased T2/FLAIR signal . No acute or subacute territorial infarct. No acute intracranial hemorrhage, midline shift, abnormal extra-axial collection, hydrocephalus or intracranial mass. Encephalomalacia of the periventricular and subcortical left frontal parietal lobe with gliosis from remote infarct. Moderate scattered T2/FL AIR hyperintensities throughout the white matter. Midline structures including the corpus callosum, b rainstem, optic chiasm, pituitary and pineal glands appear unremarkable on the sagittal T1 series. No cerebellar tonsillar herniation. Low-lying cerebellar tonsils. Major vascular flow voids are patent. Skull and orbits are unremarkable. Minimal polypoid mucosal thickening of the left maxillary sinus. IMPRESSION: 1. Subcentimeter ill-defined area of restricted diffusion within the parafalcine left frontal lobe ne ar the vertex is compatible with a tiny acute infarct. 2. No large territorial infarct, midline shift or intracranial hemorrhage. 3. Moderate T2/FLAIR hyperintensities throughout the white matter redemonstrated suggestive of chroni c microvascular ischemic disease. ACT 112: Negative or not required by law. The above report was generated using voice recognition software. It may contain grammatical, syntax o r spelling errors. Electronically signed by: Phill Caruso M.D. 07/13/2020 9:33 PM
[2020-07-13] MEDS ORDERED: CLINDAMYCIN HCL 150 MG CAP PO SCH ×2 (22:00)
[2020-07-13] MEDS: ATORVASTATIN 40 MG TAB PO SCH (22:05)
[2020-07-13] MEDS: CLINDAMYCIN HCL 150 MG CAP PO SCH (22:05)
[2020-07-13] MEDS ORDERED: ACETAMINOPHEN 325 MG TAB PO PRN (22:09)
[2020-07-14] MEDS: CLINDAMYCIN HCL 150 MG CAP PO SCH ×3 (05:48→21:23)
--- NOTE | 2020-07-14 07:18 | Electrocardiogram Report ---
Test Reason : Blood Pressure : / mmHG Vent. Rate : 072 BPM Atrial Rate : 072 BPM P-R Int : 168 ms QRS Dur : 082 ms QT Int : 390 ms P-R-T Axes : 060 037 032 degrees QTc Int : 427 ms Normal sinus rhythm Normal ECG When compared with ECG of 18-MAR-2020 10:05, No significant change was found Confirmed by Cj Devine ([id number]) on 07/14/2020 7:17:48 AM Referred By: REFERRED SELF Confirmed By:Cj Devine
[2020-07-14] MEDS: SODIUM CHLORIDE 0.9% 1000ML 1,000 ML IV SCH (07:23)
[2020-07-14] MEDS: LACTOBACILLUS ACIDOPHILUS (FLORANEX) TAB PO SCH ×3 (07:23→17:06)
--- NOTE | 2020-07-14 09:48 | Neurology Consultation ---
Date of Consultation July 14, 2020 Assessment & Plan (1) Acute CVA (cerebrovascular accident): Acute subcentimeter left parafalcine ischemic infarct near the vertex, presenting with right lower extremity weakness, resolved after administration of TPA. Would recommend starting clopidogrel this afternoon, 24 hours after TPA administration. Patient's recent acute ischemic infarct occurred while on daily low-dose aspirin. Continue with high intensity statin therapy. Follow-up with results of up-to-date echocardiogram. If there is evidence of a PFO would consider a referral for PFO closure. Would also consider a cardiology evaluation for a loop recorder as her fairly recent 30-day event monitor was unrevealing and this is her second ischemic stroke within the past 4 months. Stroke risk factors for this patient include hypertension and hyperlipidemia. Her current blood pressure is running mildly low. Continue to monitor. 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 Would consider obtaining an outpatient neurosurgical consultation. This abnormality will need serial monitoring. History of Present Illness Reason for Consultation: Stroke, status post TPA Requesting Physician: Jun Ley MD Attending Physician: Lani Desai MD History of Present Illness The patient is a 64-year-old female with a chief complaint of right leg weakness. She indicates that her weakness began acutely, yesterday afternoon while at home, approximately 30 minutes prior to her assessment in the emergency department. The weakness did improve moderately prior to her initial assessment. She describes the weakness as a heavy feeling in the leg with an inability to stand or walk. She also reported a feeling of numbness. She denies experiencing associated headache, vertigo, change in speech, or significant weakness or sensory loss for other limbs during this episode. Given the acuity and persistence of her symptoms the patient underwent a tele-stroke evaluation and was considered an appropriate candidate for TPA. Patient symptoms resolved after administration of TPA. She denies experiencing any symptomatic recurrence overnight or this morning. Patient denies headache. MRI did reveal a small acute left frontal parafalcine stroke. Imaging evaluation described in further detail below. Of note, patient was evaluated at the [facility] this past February for an acute infarct within the left external capsule/centrum semi-ovale. She was discharged on dual antiplatelet therapy and high-dose statin therapy with instructions to discontinue Plavix after 30 days. Patient had a neurological consultation with Dr. Ye at that time. Allergies Allergy/AdvReac Type Severity Reaction Status Date / Time amoxicillin Allergy Rash Verified 07/13/20 14:29 Home Medications Home Medications Medication Instructions Recorded Confirmed Type aspirin 81 mg PO QAM #30 tab 03/19/20 07/13/20 Rx atorvastatin 80 mg PO HS 07/13/20 07/13/20 History lisinopril [Zestril] 5 mg PO HS 07/13/20 07/13/20 History Patient History Medical History CVA (cerebral vascular accident) (~02/2020) left external capsule / centrum semiovale stroke Hyperlipidemia Hypertension Surgical History H/O breast biopsy (~2002) percutaneous needle core. 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 How many Children do You have: 4 Other Information That Helps Us Care for You: No Feels Safe at Home: Yes Safety Concerns: Feels Safe At This Time Review of Systems Constitutional: no fever, no chills and no fatigue Eyes: no blind spots and no diplopia Ear, Nose, Mouth, Throat: no hearing loss Respiratory: no cough and no dyspnea Cardiovascular: no chest pain and no palpitations Gastrointestinal: no nausea and no vomiting Genitourinary: no dysuria Musculoskeletal: no neck pain and no myalgia Integumentary: no rash and no lesions Neurologic: as per Subjective / HPI and + localized weakness; no headache(s) Psychiatric: no depression and no anxiety Hematologic / Lymphatic: no easy bleeding and no easy bruising Exam (Neuro) Constitutional: well developed and well nourished; no acute distress Eyes: normal visual katz by confrontation, PERRL, normal accommodation and EOM intact bilaterally; no fundoscopic abnormality, no nystagmus and no papilledema Cardiovascular: Vessels: normal carotid upstroke; no carotid bruit Neurologic: Oriented to:: Person, Place and Time Memory: Short Term Intact and Remote Intact Attention: Span Intact and Concentration Intact Language: Naming Objects and Repeating Phrases Speech Fluency: negative Dysarthria Speech Aphasia: negative Aphasia Fund of Knowledge: Current Events, Past History and Vocabulary Cranial Nerves: Normal II (Visual katz full to confrontation, visual acuity normal), III, IV, (Pupils equal round reactive to light and accommodation, eye movements normal), V (Facial sensation intact), VII (There is no facial droop or weakness), VIII (Hearing intact), IX, X (Palate elevates to midline), XI (Shoulder shrug intact) and XII (Tongue protrudes to midline) Motor Strength: Normal Lower Extremities and Normal Upper Extremities; negative Pronator Drift Motor Tone: Normal Lower Extremities and Normal Upper Extremities Muscle Bulk/Involuntary Movements: No Involuntary Movements; negative Muscle Atrophy Sensation: Light Touch Intact, Pain/Temperature Intact, Vibration Intact and Proprioception Intact Coordination: Normal; negative Limited Balance, Dysdiadochokinesia, Finger-Nose Abnormal and Heel-Alegre Abnormal Deep Tendon Reflexes: Rt Triceps: 2+, Lt Triceps: 2+, Rt Biceps: 2+, Lt Biceps: 2+, Rt Brachioradialis: 2+, Lt Brachioradialis: 2+, Rt Patellar: 2+, Lt Patellar: 2+, Rt Ankle: 2+ and Lt Ankle: 2+ Special Tests: negative Babinski Present Gait: Normal Station and Gait Results & Data ([facility]) Vital Signs (Past 12 Hours) Vital Signs Temp Pulse Pulse Resp BP BP Pulse Ox 07/14/20 09:02 37.2 C 74 22 116/75 98 07/14/20 08:02 37.2 C 74 16 139/81 95 07/14/20 07:02 37.3 C 85 20 112/75 97 07/14/20 06:02 37.3 C 60 16 129/61 96 07/14/20 05:02 36.8 C 78 17 133/72 96 07/14/20 04:02 36.8 C 67 15 124/59 L 94 07/14/20 03:02 37.4 C 68 17 116/59 L 95 07/14/20 02:02 37.4 C 77 14 135/69 97 07/14/20 01:02 37.6 C H 78 17 114/61 96 07/14/20 00:02 37.7 C H 74 18 129/60 93 07/13/20 23:02 72 76 12 154/85 H 154/85 H 98 07/13/20 22:02 73 74 20 158/80 H 158/80 H 96 Laboratory Results WBC 6.70, hemoglobin 13.8, hematocrit 41.0, platelet count 217, sodium 137, potassium 3.2, BUN 10, creatinine 0.81, glucose 108 Lipid panel from this past April: Triglycerides 97, cholesterol 132, LDL 61, VLDL 19, HDL [address] of the head negative for hemorrhage or acute process. There is evidence of chronic microvascular ischemic disease. CT angiogram of the head reveals a new focal area of high-grade stenosis involving the left A2 segment compared with the previous angiogram done March 18, 2020. There is an unchanged 2.6 mm saccular aneurysm of the right carotid terminus. There is mild to moderate multifocal atherosclerotic disease as well. There is a moderate stenosis of the right P1 segment. CT angiography of the neck unremarkable. There is minimal scattered plaque, no significant stenosis, occlusion, or dissection. MRI of the brain reveals a subcentimeter acute infarct within the parafalcine left frontal lobe near the vertex. There is chronic cerebrovascular disease present as well. I reviewed the images as well as the radiologist's interpretation of these tests. An electrocardiogram reveals a normal sinus rhythm, 72 bpm. A 30-day cardiac event monitor completed this past March revealed 12 beats of asymptomatic SVT and was otherwise normal. An echocardiogram completed March 19, 2020 was negative for cardioembolic source. A repeat echocardiogram was completed this morning, results pending. Coding Level of Care Code 86799 Inpt Consult Level 5 Diagnoses Acute CVA (cerebrovascular accident) I63.9 Aneurysm of right carotid artery I72.0
--- NOTE | 2020-07-14 10:02 | Critical Care Progress Note ---
Date of Service July 14, 2020 Assessment & Plan (1) Acute CVA (cerebrovascular accident): Reason Critically Ill: 64 yo F PMHx HTN, HLD, recent CVA February 2020 presented to ER for 30-60 minutes of R sided arm/leg weakness and numbness, admitted for acute CVA and transferred to ICU for monitoring following tPA 07/13/2020 administration. Neuro - [facility] ICU: negative Sedation: none Analgesia: none Acute CVA s/p tPA with recent history of CVA 02/2020: - Today patient presented to ED for R sided arm/leg numbness and weakness that started 30-60 minutes prior to arrival to ER. - Stroke alert called and patient had CT Head, Head and Neck CTA. - CT Head: No acute intracranial abnormality. - CTA Head: New focal area of high-grade stenosis involves the A2 segment left anterior cerebral artery which is new from the 03/18/2020 exam. - CTA Neck: No significant stenosis, occlusion, or dissection identified within the carotid or vertebral arteries. Minimal scattered plaque formation. -MRI brain: Small acute infarct appreciated along with chronic microvascular changes. - Patient received tPA with rapid resolution in R sided deficits after treatment. - Hypercoagulability workup ordered. - She took aspirin/Plavix for one month following CVA, then changed to aspirin monotherapy following. - Given failure on only aspirin therapy, will likely need DAPT moving forward. - Continue atorvastatin 80mg daily. - Monitor BP; goal SBP <180, DBP <105. Can resume lisinopril if BP climbs. - Echo to be completed tomorrow. - Frequent neuro checks. Cardiac - HTN: - As above, will resume lisinopril after monitoring closely for BP as above. HLD: - Continue atorvastatin 80mg daily. Respiratory - - No current respiratory concerns. - Continuous pulse ox. GI - - Heart Healthy diet starting at dinner. RENAL/LYTES - Hypokalemia: - On arrival with Potassium 3.2; K Riders 20 meq IV started in ED. - Have added additional 20meq IV KRiders. -Follow BMP from today - - No concerns at this time. - Monitor Is/Os. ENDO - - ICU hyperglycemia protocol. HEME - - Stable H&H. - Will monitor for any drops in the setting of tPA. ID - - No concerns for infection at this time. - Monitor fever curve. INTEGUMENTARY - - No current concerns. LINES/IV ACCESS - - PIVs intact. DVT PROPHYLAXIS - - Medical therapy contraindicated in the setting of recent tPA administration. - SCDs. CODE STATUS - - Full code. Plan: Continue with neurochecks. Keep systolic blood pressure less than 180. And diastolic less than 105 Patient used to be on aspirin alone. Will need aspirin plus Plavix. Patient was also taking clindamycin for an abscess of the tooth. Would continue with the same. Blood cultures have been ordered. Follow-up 2D echo to look for any vegetations . If the repeat CT is negative patient can be downgraded to medical floor I have personally spent 33 minutes of critical care time in the direct management of this patient. This is a life/limb threatening event. This includes time spent evaluating patient, direct bedside care, chart review, placing orders, interpretation of diagnostic studies, discussion with consultants, patient, and family members, as well as other required patient management activities. This time is exclusive of all separately billable procedures, and teaching time and separate from and in addition to any other critical care service time. Please note the above document was generated using voice recognition software. It may contain grammatical, syntax or spelling errors. (2) Received intravenous tissue plasminogen activator (tPA) in emergency department: (3) Hyperlipidemia: (4) Hypertension: (5) Hypokalemia: Admission and Anticipated Discharge Date Admission Date: July 13, 2020 Subjective Patient seen and examined at bedside. No acute distress, no adverse events overnight. No headache, no blurry vision, no chest pain, no shortness of breath. Patient able to tolerate diet. Denies any dysphagia. No abdominal pain. Review of Systems Review of Systems: All systems reviewed & are unremarkable except as noted in Subjective Physical Exam Physical Exam: Constitutional: No acute distress HEENT: EOMI, PERRLA Respiratory system: Decreased air entry bilaterally, no wheeze, no rhonchi, no crackles CVS: S1-S2 positive, no murmurs or gallops Abdomen: Soft, nontender, nondistended, positive bowel sounds x4 Extremities: +2 pulses bilaterally radialis/ dorsalis pedis, no cyanosis, no edema Neuro: Awake alert oriented x3, strength 5 out of 5 bilateral upper extremity and lower extremity. No focal deficit appreciated Psych: Normal mood and affect G/U: No Montes Skin: no rashes, warm and dry Lymphatic: no cervical or axillary lymphadenopathy Results & Data Results & Data ([facility]) Vital Signs (Past 12 Hours) Vital Signs Temp Pulse Pulse Resp BP BP Pulse Ox 07/14/20 09:02 37.2 C 74 22 116/75 98 07/14/20 08:02 37.2 C 74 16 139/81 95 07/14/20 07:02 37.3 C 85 20 112/75 97 07/14/20 06:02 37.3 C 60 16 129/61 96 07/14/20 05:02 36.8 C 78 17 133/72 96 07/14/20 04:02 36.8 C 67 15 124/59 L 94 07/14/20 03:02 37.4 C 68 17 116/59 L 95 07/14/20 02:02 37.4 C 77 14 135/69 97 07/14/20 01:02 37.6 C H 78 17 114/61 96 07/14/20 00:02 37.7 C H 74 18 129/60 93 07/13/20 23:02 72 76 12 154/85 H 154/85 H 98 07/13/20 22:02 73 74 20 158/80 H 158/80 H 96 07/13/20 13:30 07/13/20 13:30 Coding Level of Care Code Critical Care 1st 30-74 mins Diagnoses Acute CVA (cerebrovascular accident) I63.9 Received intravenous tissue plasminogen activator (tPA) in emergency department Z92.82 Hyperlipidemia E78.2 Hyperlipidemia type: mixed hyperlipidemia Hypertension I10 Hypertension type: essential hypertension Hypokalemia E87.6 Time Spent (min) 33 (1) Hyperlipidemia Hyperlipidemia type: mixed hyperlipidemia Qualified Code(s): E78.2 - Mixed hyperlipidemia (2) Hypertension Hypertension type: essential hypertension Qualified Code(s): I10 - Essential (primary) hypertension
--- NOTE | 2020-07-14 14:33 | CT Scan Report ---
CT head/brain wo con CLINICAL HISTORY: Stroke status post TPA. Evaluate for hemorrhage. COMPARISON STUDY: Noncontrast head CT dated 07/13/2020, MRI the brain dated 07/13/2020 TECHNIQUE: Axial CT of the brain is performed from the vertex to the skull base. IV contrast was not administered for this examination. A dose lowering technique was utilized adhering to the principles of ALARA. CT DOSE: 614.27 mGy.cm FINDINGS: No intra or extra-axial mass lesions are visualized. There is no CT evidence of acute cortical infarc tion. There is no evidence of midline shift. There is no acute hemorrhage. No calvarial fractures ar e visualized. There are patchy white matter hypodensities likely on a small vessel basis. There is an old infarct i n the left periventricular white matter. There is no evidence of pathologic ventricular dilatation. There is no evidence of acute sinusitis IMPRESSION: 1. No acute intracranial findings. No significant change from the preceding study. No evidence of acu te hemorrhage. ACT 112: Negative or not required by law. Electronically signed by: Celio Ba M.D. 07/14/2020 2:32 PM
[2020-07-14 14:36] LABS: Basophils # (auto) 0.01 K/uL (0-0.2); Basophils % (auto) 0.2 %; Eosinophils # (auto) 0.04 K/uL (0-0.5); Eosinophils % (auto) 0.9 %; Hematocrit (blood only) 36.5 % (37-47); Hemoglobin 12.2 g/dL (12.0-16.0); Lymphocytes # (auto) 0.94 K/uL (1.2-3.4); Lymphocytes % (auto) 21.6 %; Mean Corpuscular Hemoglobin 30.7 pg (25-34); Mean Corpuscular Hgb Conc 33.4 g/dL (32-36); Mean Corpuscular Volume 91.7 fL (80-100); Mean Platelet Volume 9.6 fL (7.4-10.4); Monocytes # (auto) 0.77 K/uL (0.11-0.59); Monocytes % (auto) 17.7 %; Neutrophils % (auto) 59.6 %; Platelet Count 185 K/uL (130-400); RDW Coefficient of Variation 12.2 % (11.5-14.5); RDW Standard Deviation 41.2 fL (36.4-46.3); Red Blood Count 3.98 M/uL (4.2-5.4); White Blood Count 4.36 K/uL (4.8-10.8)
[2020-07-14 14:48] LABS: Albumin Globulin Ratio 1.1 (0.9-2); Albumin Level 3.7 gm/dl (3.4-5.0); BUN Creatinine Ratio 12.1 (10-20); Bilirubin,Total 0.6 mg/dl (0.2-1); Calcium 9.1 mg/dl (8.5-10.1); Creatinine Clr Calc Pharmacy 59.2 ml/min; Est GFR (African American) 86.4; Est GFR (Non-African American) 74.5; Globulin 3.4 gm/dl (2.5-4.0); Total Protein 7.1 gm/dl (6.4-8.2)
[2020-07-14 14:52] LABS: Phosphorus 3.5 mg/dl (2.5-4.9)
--- NOTE | 2020-07-14 15:42 | XCELERA ---
[id number]
--- NOTE | 2020-07-14 20:43 | Hospitalist Progress Note ---
Date of Service July 14, 2020 Assessment & Plan (1) CVA (cerebral vascular accident): Patient with right-sided weakness and numbness at presentation. s/p CT head without ICH. s/p CTA head/neck -- head showed occlusion of left TYRESE. Code stroke alert called; neurologist with [facility] advised TPA. TPA given w/o incident. Weakness completely resolved. Presentation most likely due to embolus. Prior work-up in 02/2020 when she suffered her first stroke was unrevealing including echo with bubble study, 30-day event monitor, CTAs, etc. This stroke occurred while taking aspirin. This is concerning that she has now suffered 2 strokes in 4 months. Hypercoagulable state from occult cancer? Hypercoagulable state from hereditary factors? Paroxysmal a.fib? Other? DOing well, repeat head CT 24 hrs s/p tPA is negative MRI brain confirms left parafacline frontal lobe stroke Seen by Neuro and recommends starting Plavix 24 hrs after tPA -continue high intensity statin -continue tele monitor and consider loop recorder -needs NS eval as outpt for right carotid terminus aneurysm. Pt's got her set up already with a Neuro Stroke Specialist at [facility] discharge PT, OT, speech evals. Is cleared for home, does nto need rehab -sent hypercoagulable work-up including factor V Leiden, prothrombin gene mutation, etc. Would advise cancer screenings if not already done -- mammogram, colonoscopy, etc. (2) Stroke due to occlusion of left anterior cerebral artery: CTA head with left TYRESE high-grade stenosis - presumably due to embolus as the ACAs were patent on 02/2020 CTA. ER attending spoke with [facility] - no indication for acute transfer to tertiary care in light of receiving TPA. (3) Received intravenous tissue plasminogen activator (tPA) in emergency department: (4) Hypertension: Allow permissive HTN in light of acute stroke. HOLD VENTURA. (5) Hyperlipidemia: lipids ok Cont high-intensity statin. (6) Hypokalemia: replaced IV. normalized (7) Dental abscess: continue clindamycin TID. f/u with dentist post-d/c. ECHO no vegetation (8) DVT prophylaxis: SCDs Dispo-downgrade from ICU to tele Admission and Anticipated Discharge Date Admission Date: July 13, 2020 Subjective feeling very well, no weakness. Denies headache, no CP or SOB. No bleeding from anywhere. Is moving bowels, making urine, eating. Is OOB to chair. Tele without arrhythmia Review of Systems Review of Systems: All systems reviewed & are unremarkable except as noted in HPI & below Physical Exam Constitutional: WD/WN, vitals as above Eyes: + anicteric sclerae ENMT: external ear and nose normal, oropharynx normal Neck: trachea midline, no thyromegaly Respiratory: normal respiratory effort, lungs clear to auscultation Cardiovascular: RRR, no murmur, no edema Chest (Breasts): Chest: normal inspection of chest Gastrointestinal (Abdomen): normal bowel sounds, soft, nontender, no hepatosp lenomegaly Musculoskeletal: Extremities: extremities normal to inspection; no cyanosis and no clubbing Skin: no rashes, warm and dry Neurologic: moves all extremities and awake; no focal motor deficits Psychiatric: A+Ox3, euthymic affect Lymphatic: no lymphedema Results & Data Results & Data ([facility]) Vital Signs (Past 12 Hours) Vital Signs Temp Pulse Pulse Resp BP BP Pulse Ox 07/14/20 16:19 161/64 H 07/14/20 15:36 85 20 151/89 H 97 07/14/20 15:01 75 18 98 07/14/20 14:37 94 H 24 150/92 H 98 07/14/20 14:03 79 19 168/86 H 97 07/14/20 14:02 37.3 C 86 18 168/86 H 98 07/14/20 14:01 74 19 97 07/14/20 13:02 37.2 C 73 18 142/76 H 97 07/14/20 12:02 37.3 C 71 18 141/76 H 96 07/14/20 11:02 37.3 C 60 18 141/77 H 98 07/14/20 10:02 37.2 C 67 18 154/84 H 97 07/14/20 09:02 37.2 C 74 22 116/75 98 PG Care Time/CCT Total # of Minutes Spent Total Time Spent with Patient: Total time spent is greater than 50% in coordination of care (as documented) at patient's floor/unit and/or counseling patient: Coding Level of Care Code 83268 Subseq Hosp Care Lvl 3 Diagnoses CVA (cerebral vascular accident) I63.422 CVA mechanism: embolism Laterality of affected vessel: left Precerebral and cerebral artery: anterior cerebral artery Stroke due to occlusion of left anterior cerebral artery I63.522 Received intravenous tissue plasminogen activator (tPA) in emergency department Z92.82 Hypertension I10 Hypertension type: essential hypertension Hyperlipidemia E78.2 Hyperlipidemia type: mixed hyperlipidemia Hypokalemia E87.6 Dental abscess K04.7 DVT prophylaxis Z29.9 (1) Hyperlipidemia Hyperlipidemia type: mixed hyperlipidemia Qualified Code(s): E78.2 - Mixed hyperlipidemia (2) Hypertension Hypertension type: essential hypertension Qualified Code(s): I10 - Essential (primary) hypertension (3) CVA (cerebral vascular accident) CVA mechanism: embolism Laterality of affected vessel: left Precerebral and cerebral artery: anterior cerebral artery Qualified Code(s): I63.422 - Cerebral infarction due to embolism of left anterior cerebral artery
[2020-07-14] MEDS ORDERED: CLOPIDOGREL BISULFATE 75 MG TAB PO ONE (20:58)
[2020-07-14] MEDS: ATORVASTATIN 40 MG TAB PO SCH (21:22)
[2020-07-15 04:44] LABS: Basophils # (auto) 0.02 K/uL (0-0.2); Basophils % (auto) 0.4 %; Eosinophils # (auto) 0.16 K/uL (0-0.5); Hematocrit (blood only) 37.7 % (37-47); Hemoglobin 12.7 g/dL (12.0-16.0); Immature Granulocytes # (auto) 0.01 K/uL (0.00-0.02); Immature Granulocytes % (auto) 0.2 %; Lymphocytes # (auto) 1.48 K/uL (1.2-3.4); Lymphocytes % (auto) 27.8 %; Mean Corpuscular Hemoglobin 30.6 pg (25-34); Mean Corpuscular Hgb Conc 33.7 g/dL (32-36); Mean Corpuscular Volume 90.8 fL (80-100); Mean Platelet Volume 9.8 fL (7.4-10.4); Monocytes # (auto) 1.01 K/uL (0.11-0.59); Neutrophils # (auto) 2.64 K/uL (1.4-6.5); Neutrophils % (auto) 49.6 %; Platelet Count 201 K/uL (130-400); RDW Coefficient of Variation 12.4 % (11.5-14.5); RDW Standard Deviation 41.1 fL (36.4-46.3); Red Blood Count 4.15 M/uL (4.2-5.4); White Blood Count 5.32 K/uL (4.8-10.8)
[2020-07-15 05:00] LABS: Calcium 8.4 mg/dl (8.5-10.1); Creatinine Clr Calc Pharmacy 72.3 ml/min; Est GFR (African American) 107.1; Est GFR (Non-African American) 92.4; Potassium 4.1 mmol/L (3.5-5.1)
[2020-07-15] MEDS: CLINDAMYCIN HCL 150 MG CAP PO SCH (05:57)
[2020-07-15] MEDS: LACTOBACILLUS ACIDOPHILUS (FLORANEX) TAB PO SCH ×2 (07:30→11:12)
[2020-07-15] MEDS ORDERED: CLOPIDOGREL BISULFATE 75 MG TAB PO SCH (09:00)
--- NOTE | 2020-07-15 09:05 | Neurology Progress Note ---
Date of Service July 15, 2020 Assessment & Plan (1) Acute CVA (cerebrovascular accident): Acute subcentimeter left parafalcine ischemic infarct near the vertex, presenting with right lower extremity weakness, resolved after administration of TPA. Patient has been neurologically stable and has an intact neurological examination this morning. History of left MCA territory infarct occurring this past February as well. No significant stenosis of the cervical carotid or vertebral vessels. New stenosis of the left A2 artery noted. No cardioembolic source on repeat echocardiogram. Occult atrial fibrillation may not be completely excluded. Recent 30-day event monitor was unremarkable, however. Would consider pursuing an implantable loop recorder, cardiology consultation. Follow-up with results of hypercoagulable panel. Continue clopidogrel 75 mg/day. At this point, would add aspirin 81 mg/day, for the next 3 weeks, then discontinue aspirin in favor of clopidogrel monotherapy. Patient requesting follow-up with a stroke specialist at [facility], Dr. Phillips. She would also like me to discuss her case with Dr. Barakat, her 's neurologist, also at [facility]. 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 This abnormality will need serial monitoring, consider outpatient neurosurgical consultation as well for additional assessment. Aneurysms of the small size would not typically require surgical intervention, however and would generally be considered to have a low rupture risk. Outpatient monitoring of blood pressure will be important. Blood pressure this morning appropriate. Admission and Anticipated Discharge Date Admission Date: July 13, 2020 Subjective Follow-up for stroke The patient denies any recurrence of right lower extremity weakness this morning. No associated numbness. She denies headache or other neurological symptoms. Has been clinically stable overnight. Follow-up CT of the head completed as well, no evidence of hemorrhage. Up-to-date echocardiogram completed, no cardioembolic source, no PFO. Hypercoagulable labs pending. Clopidogrel started 24 hours after administration of TPA. Patient is normotensive this morning. Review of Systems Constitutional: no fever and no chills Eyes: no blind spots and no diplopia Neurologic: no headache(s) Results & Data ([facility]) Vital Signs (Past 12 Hours) Vital Signs Temp Pulse Resp BP Pulse Ox 07/15/20 06:37 52 L 14 128/61 97 07/15/20 06:31 51 L 14 96 08/16/20 06:01 67 12 96 07/15/20 05:37 59 L 15 114/78 93 07/15/20 05:31 59 L 14 96 07/15/20 05:01 53 L 14 97 07/15/20 04:36 53 L 16 141/75 H 96 07/15/20 04:30 59 L 16 96 07/15/20 04:00 37.1 C 55 L 14 96 07/15/20 03:36 58 L 0 L 135/65 97 07/15/20 03:30 54 L 1 L 96 07/15/20 03:00 57 L 5 L 96 07/15/20 02:36 61 15 106/59 L 93 07/15/20 02:30 61 16 94 07/15/20 02:00 58 L 18 96 07/15/20 01:36 56 L 16 128/59 L 97 07/15/20 01:30 56 L 16 95 07/15/20 01:00 70 19 97 07/15/20 00:36 60 17 118/54 L 97 07/15/20 00:30 59 L 16 95 07/15/20 00:00 37.1 C 56 L 17 96 07/14/20 23:37 60 17 137/78 97 07/14/20 23:31 55 L 13 97 07/14/20 23:01 55 L 18 96 07/14/20 22:36 60 19 142/69 H 96 07/14/20 22:31 59 L 18 95 07/14/20 22:01 60 12 131/70 97 07/14/20 21:36 91 H 19 157/100 H 96 07/14/20 21:31 69 20 97 Laboratory Results WBC 5.32, hemoglobin 12.7, hematocrit 37.7, platelet count 201, sodium 142, potassium 4.1, BUN 10, creatinine 0.68, glucose 85 Diagnostic Findings A follow-up CT of the head completed yesterday was negative for hemorrhage or acute process. There is patchy small vessel ischemic change as well as an old left periventricular white matter infarct. I reviewed the images as well as the radiologist interpretation of this test. Up-to-date transthoracic echocardiogram completed yesterday was unremarkable, ejection fraction 60 to 65%, no regional wall motion abnormalities. No right to left shunt. Exam (Neuro) Constitutional: well developed and well nourished; no acute distress Neurologic: Oriented to:: Person, Place and Time Memory: Short Term Intact and Remote Intact Attention: Span Intact and Concentration Intact Speech Fluency: negative Dysarthria Speech Aphasia: negative Aphasia Fund of Knowledge: Current Events, Past History and Vocabulary Cranial Nerves: Normal II, III, IV, , V, VII, VIII, IX, X, XI and XII Motor Strength: Normal Lower Extremities and Normal Upper Extremities Muscle Bulk/Involuntary Movements: No Involuntary Movements; negative Muscle Atrophy Sensation: Light Touch Intact and Pain/Temperature Intact Coordination: Normal; negative Limited Balance, Dysdiadochokinesia, Finger-Nose Abnormal and Heel-Alegre Abnormal Coding Level of Care Code 08461 Subseq Hosp Care Lvl 3 Diagnoses Acute CVA (cerebrovascular accident) I63.9 Aneurysm of right carotid artery I72.0
[2020-07-15] MEDS ORDERED: ASPIRIN 81 MG ECTAB PO SCH (10:45)
[2020-07-15] MEDS ORDERED: STROKE PATIENT DISCHARGE STA (11:16)
--- NOTE | 2020-07-15 11:16 | Discharge Summary ---
Date of Service July 15, 2020 Admission HPI Per Admitting Provider 64yo female with left-sided stroke in 02/2020 (had transient aphasia) with no long-standing symptoms, HTN, and hyperlipidemia who presents with acute onset of right sided weakness and numbness. 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 She then developed right arm weakness but the right leg weakness was worse. Shortly after her right arm and leg were numb. Never had dysphagia, dysarthria, left-sided symptoms, vertigo, or ataxia. At 1223 she called the patient's on his cell phone. He immediately came home and brought her to [facility]. Stroke alert was called upon arrival. After consultation with Leilani Telestroke a decision was made to proceed with TPA. Patient's symptoms began to slightly improve just before the TPA was hung. By the time of my assessment the TPA had completed and her right-sided symptoms were essentially resolved. Over the preceding few days she has had no infectious symptoms, no TIA symptoms, and has felt well. She reports that following her stroke in 02/2020 she completed an event monitor. The event monitor report shows 1 brief 12-beat episode of PSVT only. She took asa/plavix TOGETHER x 1 month post-CVA, then changed to aspirin monotherapy thereafter. Principal Diagnosis Acute ischemic CVA Discharge Exam Constitutional WD/WN, vitals as above Eyes PERRL, conjunctivae normal, anicteric sclerae EOM intact bilaterally; no nystagmus ENMT external ear and nose normal, oropharynx normal Neck trachea midline, no thyromegaly Respiratory normal respiratory effort, lungs clear to auscultation Cardiovascular RRR, no murmur, no edema Chest (Breasts) Chest: normal inspection of chest Gastrointestinal (Abdomen) normal bowel sounds, soft, nontender, no hepatosplenomegaly Musculoskeletal Extremities: extremities normal to inspection; no cyanosis and no clubbing Skin no rashes, warm and dry Neurologic PERRL, EOMI, accommodation nl, no face palsy, no dysarthria CN's II-XI intact bilaterally, deep tendon reflexes 2+ bilaterally, moves all extremities and awake; no focal motor deficits Motor/Sensory: no sensory deficit Psychiatric A+Ox3, euthymic affect Lymphatic no lymphedema Discharge Data Allergies Allergy/AdvReac Type Severity Reaction Status Date / Time amoxicillin Allergy Rash Verified 07/13/20 14:29 Consultations 07/13/20 14:20 ED Decision to Admit Stat 07/13/20 15:03 Consult Nutrition Services Assistant Routine 07/13/20 16:16 Consult Case Management - Discharge Planning Routine Consult Neurology Routine 07/15/20 11:01 Consult [facility] job development specialist Routine Ordered Studies 07/13/20 13:27 CT angio head w con Stat CT angio neck with con Stat CT head/brain wo con Stat 07/13/20 16:16 MR brain wo con Routine 07/14/20 14:00 CT head/brain wo con Routine CXR Hospital Course (1) CVA (cerebral vascular accident): Patient with right-sided weakness and numbness at presentation. s/p CT head without ICH. s/p CTA head/neck -- head showed occlusion of left TYRESE. Code stroke alert called; neurologist with [facility] advised TPA. TPA given w/o incident. Weakness completely resolved. Presentation most likely due to embolus. Prior work-up in 02/2020 when she suffered her first stroke was unrevealing including echo with bubble study, 30-day event monitor, CTAs, etc. This stroke occurred while taking aspirin. This is concerning that she has now suffered 2 strokes in 4 months. Hypercoagulable state from occult cancer? Hypercoagulable state from hereditary factors? Paroxysmal a.fib? Other? DOing well, repeat head CT 24 hrs s/p tPA is negative MRI brain confirms left parafacline frontal lobe stroke Seen by Neuro and recommends starting Plavix 24 hrs after tPA, and then going home on ASA/Plavix x 3 weeks, then going to Plavix 75mg daily alone -continue high intensity statin -will set up for loop recorder implantation hopefully this week-sent message to [facility] regarding this -needs NS eval as outpt for right carotid terminus aneurysm. Pt's got her set up already with a Neuro Stroke Specialist at [facility] for after discharge PT, OT, speech evals. Is cleared for home, doesn't need rehab -sent hypercoagulable work-up including factor V Leiden, prothrombin gene mutation, etc.-pending at time of dc Would advise cancer screenings if not already done --she had mammogram recently, pap last fall and normal. has upcoming Cologuard test for colon CA screening F/u with PCP, Neuro (2) Stroke due to occlusion of left anterior cerebral artery: CTA head with left TYRESE A2 high-grade stenosis - presumably due to embolus as the ACAs were patent on 02/2020 CTA. ER attending spoke with [facility] neurolog[facility] - no indication for acute transfer to tertiary care in light of receiving TPA. (3) Received intravenous tissue plasminogen activator (tPA) in emergency department: (4) Hypertension: Allow permissive HTN in light of acute stroke. Held ACEi here but ok to restart on discharge. (5) Hyperlipidemia: lipids ok Cont high-intensity statin. (6) Hypokalemia: replaced IV. normalized (7) Dental abscess: continue clindamycin TID through 10 day course. f/u with dentist post-d/c. ECHO no vegetation would recommend against any dental procedures right now unless absolutely necessary-discussed with patient (8) DVT prophylaxis: SCDs Dispo-stable for dc Total Time Total Time Spent Total Time Spent (In Minutes): >30 min Total Time Includes: Examination of the Patient, Discharge Planning, Medication Reconciliation and Communication With Other Providers (Neurology) Discharge Plan Discharge Items Patient Disposition: Home - Self-Care Reason For Visit: SUSPECTED STROKE S/P TPA Discharge Diagnosis: Acute CVA Condition on Discharge: Good Activity: Resume your previous activity Non-emergency contact: Primary Care Provider, [facility] and Neurologist Call non-emergency contact if: you have any medication questions and your symptoms worsen Follow-up/Referrals: Yenny Corona MD [Primary Care Provider] - (Follow up within 1-2 weeks.) Bruno Vazquez MD [Physician] - (Dr. Vazquez of Cardiology will contact you with your appointment date and time for loop recorder implantation to monitor your heart rhythm director long term care.) Diet: Heart Healthy Addtl Attending Provider Instructions: You were admitted with another stroke and given a clot buster drug called TPA. Your stroke symptoms completely resolved. Your brain MRI did confirm that you had a stroke. You will take both aspirin and Plavix x 3 weeks, and then STOP the aspirin but CONTINUE the Plavix once daily. Please follow up with the Neuro Stroke Specialist at [facility]. Our Nurse Navigator will help facilitate this referral. You have a small aneurysm of your right carotid artery that will also need to be followed at [facility] by a Neurosurgeon. Because of your recurrent strokes with no definite explantation, you were recommended to have a director long term care heart monitor implanted underneath the skin as we discussed called a Loop recorder. The Cardiology office will contact you with your appointment date and time for this. Also, blood work was sent out to check you for a genetic problem that would cause thickened blood-these results can be reviewed by Dr. Melvin when they are available in about one week. Please ensure you are up to date on your colon cancer screening as we discussed as well. Risk Factors for Stroke: You can reduce your chances of stroke by working with your medical provider to adopt a healthy lifestyle. Some specific ways to lower your chance of stroke are: * If you are a smoker, now is the time to stop smoking cigarettes * If you are diabetic, improve the control of your blood sugars * Avoid excessive amounts of alcohol * Control high blood pressure * Lose weight if you are overweight * Be sure to lead an active lifestyle * Eat a healthy diet low in salt, cholesterol and fat You should know about other risk factors for stroke that you are unable to control. These include: * Age 55 years or older * Male gender * Certain racial groups: , or / * Family History of Stroke, Mini stroke or Heart Attack * Sickle Cell Disease Follow Up: It is important for you to keep your follow up appointments with your medical provider. Who to Call and When: Medical Emergencies: Call 911 immediately if you experience any of the following warning signs and symptoms of Stroke: * Sudden numbness or weakness of the face, arm or leg, especially on one side of the body * Sudden confusion, trouble speaking or understanding * Sudden trouble seeing in one or both eyes * Sudden trouble walking, dizziness, loss of balance or coordination * Sudden severe headache with no cause Do not delay calling 911 if you experience any warning signs or symptoms of a stroke. Delay in seeking medical attention may affect what treatments can be given to you. . Pending Studies at Discharge: Yes (hypercoagulable workup) Stand-Alone Forms: Medications to Prevent Stroke, My [facility] Medications and DC Order Prescriptions: New clopidogrel 75 mg Tablet 75 mg PO QAM Qty: 30 RF: 0 acetaminophen 325 mg Tablet 650 mg PO Q4H PRN (Reason: pain) Qty: 30 RF: 0 Continued atorvastatin 80 mg tablet 80 mg PO HS RF: 0 lisinopril [Zestril] 5 mg tablet 5 mg PO HS RF: 0 clindamycin HCl 300 mg capsule 300 mg PO TID RF: 0 aspirin 81 mg Tablet,Delayed Release (Dr/Ec) 81 mg PO QAM Qty: 21 RF: 0 Discharge Orders: Discharge Order (Routine); Ordered 07/15/20 Ordered By: Lani Desai Admission Data Admit Date/Time: 07/13/20 15:03 Attending Provider: Lani Desai Admit Provider: Jun Ley Primary Care Provider: Yenny Corona Other Providers: Jun Ley ; Madai Castillo ; Daniel Ann Coding Level of Care Code D/C Day Management >30 mins Diagnoses CVA (cerebral vascular accident) I63.422 CVA mechanism: embolism Laterality of affected vessel: left Precerebral and cerebral artery: anterior cerebral artery Stroke due to occlusion of left anterior cerebral artery I63.522 Received intravenous tissue plasminogen activator (tPA) in emergency department Z92.82 Hypertension I10 Hypertension type: essential hypertension Hyperlipidemia E78.2 Hyperlipidemia type: mixed hyperlipidemia Hypokalemia E87.6 Dental abscess K04.7 DVT prophylaxis Z29.9
--- NOTE | 2020-07-15 11:35 | Pharmacy Report ---
Pharmacist Stroke Counseling - Date of Service July 15, 2020 - Scope: Pharmacy has been consulted to provide medication discharge counseling for this patient admitted with ischemic stroke as per the Pharmacist Discharge Counseling for Stroke Patients Protocol. - Medications on Discharge: Home Medications Medication Instructions Recorded Confirmed atorvastatin 80 mg PO HS 07/13/20 07/13/20 lisinopril [Zestril] 5 mg PO HS 07/13/20 07/13/20 clindamycin HCl 300 mg PO TID 07/15/20 07/15/20 New Rx's Medication Instructions Recorded aspirin 81 mg PO QAM #30 tab 03/19/20 acetaminophen 650 mg PO Q4H PRN #30 tab 07/15/20 clopidogrel 75 mg PO QAM #30 tab 07/15/20 - Action: The above medications, specifically ones for stroke treatment/prophylaxis, have been reviewed in detail with the patient prior to discharge. This includes indication, common adverse reactions, drug interactions, and medication administration. Medication counseling has been employed using the teach-back method to ensure understanding. - Outcome: The patient have demonstrated understanding of the medications. Additional comments: Spoke over the phone with patient today- she was very pleasant and receptive to counseling. Reviewed new medication to prevent stroke which is Plavix and continuing with previous meds Atorvastatin and Aspirin. I explained ASA + Plavix is to continue for 3 weeks together, then she can stop taking the baby ASA but continue with only Plavix daily. Discussed why they are being used and common side effects in great detail. Reviewed how to use the medications, what to do if doses are missed, common drug interactions, common side effects, what to watch out for while using the medications. Pt verbalized understanding. She said she is comfortable with taking these meds since she had been on all of them recently when she had her first stroke event couple of months ago. Thank you for allowing pharmacy to be involved in the care of this patient. Please call [phone] with any additional questions
[2020-07-16 05:43] LABS: Estimated Average Glucose 117 mg/dl; Hemoglobin A1C 5.7 % (4.5-5.6)
[2020-07-19 20:54] LABS: Anti-Thrombin III Activity 127 % normal (80-135); B2 Glycoprotein IgA <9 SAU (<=20); B2 Glycoprotein IgG <9 SGU (<=20); B2 Glycoprotein IgM <9 SMU (<=20); Protein S Functional(Activity) 119 % (60-140)
--- NOTE | 2020-08-27 11:01 | Communication Note ---
Date of Service: August 27, 2020 Spoke with patient on 08/27/20 b y phone. Told her genetic testing for hypercoagulable state was negative (prothrombin gene, factor 5 Leiden mutation, etc). Homocysteine level was scantly elevated at 10.6. Told her I did not think the homocysteine was the cause of her recurrent strokes. [id number] it would not hurt to treat the level with B6/B12/folate. Gave prescriptions for such; called to [facility]. Asked her to have her PCP recheck her homocysteine level in the future and reassess need for ongoing vitamin supplementation. She voiced understanding. Noted that she has had loop recorder implantation to detect occult PAF. Jun Ley MD
== END 2020-07-15 12:22 | disposition home or self-care (01) | DRG 62 ==
LOC: ED 13:15 → 1E 15:03 → SUATTDRO 15:03 → 1E 15:43